=== PATIENT | female | born 1955 | race Caucasian/White ===

== ENCOUNTER 2018-11-22 18:28 | Inpatient (IN) ==
[2018-11-22] MEDS ORDERED: ONDANSETRON INJ 2 MG/ML 2 ML VIAL IV STA (18:39)
[2018-11-22] MEDS ORDERED: SODIUM CHLORIDE 0.9% 1000ML 1,000 ML IV SCH (18:45)
[2018-11-22] MEDS ORDERED: SODIUM CHLORIDE 0.9% 500 ML IV SCH (18:45)
[2018-11-22] MEDS: HYDROmorphone INJ 0.5 MG/0.5 ML SYR IV PRN ×2 (19:15→19:31)
--- NOTE | 2018-11-22 19:17 | XRay Report ---
XR chest 1V portable CLINICAL HISTORY: weakness dyspnea COMPARISON STUDY: 11/01/2018 FINDINGS: Unchanged exam. Infiltrate left base versus effusion. Lungs otherwise appear clear. Chronic atelectatic/fibrotic change right apex. Central catheter in superior vena cava. IMPRESSION: Unchanging infiltrate/effusion left base. No change from the prior study. The above report was generated using voice recognition software. It may contain grammatical, syntax or spelling errors. Electronically signed by: Gopal Crane M.D. 11/22/2018 7:16 PM
[2018-11-22 19:20] LABS: Basophils # (auto) 0.01 K/uL (0-0.2); Basophils % (auto) 0.1 %; Hematocrit (blood only) 27.2 % (37-47); Hemoglobin 8.5 g/dL (12.0-16.0); Immature Granulocytes # (auto) 0.06 K/uL (0.00-0.02); Immature Granulocytes % (auto) 0.3 %; Lymphocytes # (auto) 0.26 K/uL (1.2-3.4); Lymphocytes % (auto) 1.4 %; Mean Corpuscular Hgb Conc 31.3 g/dL (32-36); Mean Corpuscular Volume 81.4 fL (80-100); Monocytes # (auto) 0.03 K/uL (0.11-0.59); Monocytes % (auto) 0.2 %; Neutrophils # (auto) 18.33 K/uL (1.4-6.5); Platelet Count 180 K/uL (130-400); RDW Coefficient of Variation 17.9 % (11.5-14.5); RDW Standard Deviation 53.4 fL (36.4-46.3); Red Blood Count 3.34 M/uL (4.2-5.4); White Blood Count 18.69 K/uL (4.8-10.8)
[2018-11-22 19:38] LABS: Alanine Aminotransferase 25 U/L (12-78); Albumin Level 1.9 gm/dl (3.4-5.0); Aspartate Aminotransferase 43 U/L (15-37); BUN Creatinine Ratio 18.2 (10-20); Blood Urea Nitrogen 28 mg/dl (7-18); Calcium 8.2 mg/dl (8.5-10.1); Carbon Dioxide 29 mmol/L (21-32); Chloride 98 mmol/L (98-107); Creatinine Clr Calc Pharmacy 43.2 ml/min; Est GFR (African American) 40.9; Est GFR (Non-African American) 35.3; Glucose 126 mg/dl (70-99); Magnesium 2.1 mg/dl (1.8-2.4); Sodium 135 mmol/L (136-145)
[2018-11-22 19:49] LABS: Albumin Globulin Ratio 0.5 (0.9-2); Alkaline Phosphatase 179 U/L (45-117); Bilirubin,Total 0.7 mg/dl (0.2-1); Globulin 3.9 gm/dl (2.5-4.0); Total Protein 5.8 gm/dl (6.4-8.2); Troponin I < 0.015 ng/ml (0-0.045)
[2018-11-22] MEDS ORDERED: OPTIRAY 320 125ml IV PRN (19:55)
[2018-11-22 20:02] LABS: T4 Free Thyroxine 1.26 ng/dl (0.8-1.6)
[2018-11-22] MEDS ORDERED: PROMETHAZINE 25 MG/51 ML BAG IV STA (20:19)
--- NOTE | 2018-11-22 20:19 | CT Scan Report ---
CT angio chest PE protocol CT DOSE: 2058.99 mGy.cm HISTORY: Dyspnea SOB, recent PE TECHNIQUE: Multiaxial CT images of the chest were performed following the intravenous administration of contrast to evaluate the pulmonary arteries. Maximal intensity projection images were also obtaine d. A dose lowering technique was utilized adhering to the principles of ALARA. COMPARISON STUDY: 11/01/2018 FINDINGS: Mild atherosclerotic changes thoracic aorta. Bilateral pulmonary emboli considerably improv ed as compared to the prior study. Moderate residual within the distal right main pulmonary artery as well as the proximal right upper a nd right lower lobe pulmonary arterial distributions. No major embolic process involving the left pulmonary arterial structures at this time. Loculated left basilar effusion unchanged. Small left pleural effusion slightly improved. Persistent bibasilar atelectatic change. 2. Esophagus is now fluid-filled suggesting reflux. IMPRESSION: 1. Findings consistent with bilateral pulmonary emboli improved from the prior exam. 2. No new or progressive pulmonary embolic process. 3. Fluid-filled esophagus suggesting probable reflux. 4. Loculated left basilar effusion unchanged. 5. Small bilateral pleural effusions similar. 6. Mild bibasilar atelectatic change slightly improved. 7. . Abdominal ascites. The above report was generated using voice recognition software. It may contain grammatical, syntax or spelling errors. Electronically signed by: Gopal Crane M.D. 11/22/2018 8:18 PM
--- NOTE | 2018-11-22 20:23 | CT Scan Report ---
CT abd pelvis IV con only CT DOSE: HISTORY: Nausea. Vomiting. vomiting, recent pe, ovarian CA, lower pain TECHNIQUE: Multiaxial CT images of the abdomen and pelvis were performed following the use of intrave nous contrast. A dose lowering technique was utilized adhering to the principles of ALARA. COMPARISON STUDY: 11/01/2018 FINDINGS: Mild bibasilar atelectatic and effusion detected change considered stable. Abdominal and pe lvic ascites considered stable. The liver spleen and pancreas enhance uniformly. The esophagus is flu id-filled. Abdominal carcinomatosis unchanged. Nonobstructive bowel pattern. Kidneys are negative for hydronephr osis. Scattered adenopathy unchanged. The bladder is midline. Trace free free fluid within the pelvic cul-de-sac unchanged. IMPRESSION: 1. No major change compared to the prior study of 11/01/2018. 2. Moderate abdominal and pelvic ascites. 3. Nonobstructive bowel pattern. 4. Fluid filled esophagus possibly related to reflux. 5. Mild carcinomatosis unchanged. The above report was generated using voice recognition software. It may contain grammatical, syntax or spelling errors. Electronically signed by: Gopal Crane M.D. 11/22/2018 8:22 PM
--- NOTE | 2018-11-22 21:56 | Emergency Department Note ---
Entered by Carole Nelson acting as a scribe for ED Provider Note CHIEF COMPLAINT: Vomiting HISTORY OF PRESENT ILLNESS: The patient is a 63 year old female who presents to the Emergency Room with complaints of vomitting that started . The patient's son states that the patient started a new chemotherapy medication on for her stage four ovarian cancer. Since then, the patient has been nauseous and vomiting. The patient expresses back pain, shortness of breath, and lack of energy. The patient also states that she has had abdominal pain at a severity of 5. The patient's son reports that the patient has had fluid drained from her stomach and a treatment two weeks ago in this ER for blood clots within her legs. The patient's blood clots were treated using a heparin drip. The patient reports taking morphine this morning and believes that her morning medication has been ingested. The patient has a meta-port in place and is on Novalox. Pt denies LOC, headache, fevers, chills, diaphoresis, visual changes, neck pain, chest pain, melena, hematochezia, numbness, weakness, lymphadenopathy, rash, or other complaints. REVIEW OF SYSTEMS: See HPI for pertinent positives and negatives. A total of ten systems were reviewed and were otherwise negative. PMHx/PSHx: Stage four ovarian cancer SOCIAL HISTORY: Patient lives at home. PHYSICAL EXAM: GENERAL: Awake, alert, ill-appearing, in mild distress and actively vomiting HENT: Normocephalic, atraumatic. Oropharynx unremarkable. EYES: PERRL. Normal conjunctiva. Sclera non-icteric. NECK: Inspection normal. Non-tender. Supple. No nuchal rigidity. FROM. No masses. RESPIRATORY: Clear to auscultation. No wheezes. No rales. Normal respiratory effort. CARDIAC: Borderline tachycardic rate. Normal rhythm. No murmurs. No rubs. Extremities warm and well perfused. Pulses equal. No JVD. GI: Soft, non-distended. Left lower abdominal tenderness. No rebound or guarding. No masses. RECTAL: Deferred. MUSCULOSKELETAL: Atraumatic. Chest examination reveals no tenderness. The back is symmetrical on inspection without obvious abnormality. Left CVA tenderness to palpation. No joint edema. LOWER EXTREMITIES: Calves are equal size bilaterally and non-tender. No edema. No discoloration. NEURO: Normal sensorium. No sensory or motor deficits noted. SKIN: No rash or jaundice noted. EMERGENCY DEPARTMENT COURSE: 1833: Past medical records reviewed. The patient was evaluated in room C3, and a complete history and physical examination were performed. 2032: I reassessed the patient who is still feeling nauseous but is feeling somewhat better. [facility] 2128: I reviewed the patient's case [facility] will evaluate the patient for further management. MEDICAL DECISION MAKING: C3 Prior records/ancillary studies reviewed. The patient was transferred due to concerns about possible intervention requirement on her significant pulmonary emboli. Triage Nursing notes reviewed and agree them. Additional history obtained from the family. The patient's history was concerning for nausea, vomiting, recent pulmonary emboli, shortness of breath and, and abdominal pain. Differential diagnosis: Etiologies such as comp location of chemotherapy, worsening pulmonary emboli, dehydration, electrolyte abnormality, ACS, gastroenteritis, food borne illness, infections, appendicitis, diverticulitis, inflammatory bowel disease, GI bleed, biliary pathology, as well as others were entertained. Physical examination findings: As above. The patient was uncomfortable. She was actively vomiting. She has some mild lower abdominal tenderness. ER treatment provided: IV hydration with NSS. IV Zofran IV Dilaudid On reassessment the patient felt better. Patient was tolerating p.o. intake. Diagnostics interpretation by me: ECG: No acute findings. The labs revealed a mild leukocytosis and anemia on CBC. Chemistry panel shows a mild dehydration otherwise was unremarkable. Imaging studies: CT scan of the chest abdomen pelvis were performed. The pulmonary emboli and chest CT are improved. The CT scan abdomen pelvis does not reveal any acute findings. Carcinomatosis noted. The patient has intractable nausea and vomiting. Likely this is due to her chemotherapy. She is dehydrated. She will need further management in the hospital. Consultation: A consultation was placed with the [facility]. The case was discussed and diagnostics were reviewed. The patient was evaluated in the ER for further treatment. IMPRESSION: Nausea Vomiting Leukocytosis Dehydration Metastatic ovarian cancer PLAN: Admitted The scribe's documentation has been prepared under my direction and personally reviewed by me in its entirety. I confirm that the note above accurately reflects all work, treatment, procedures, and medical decision making performed by me. Impression & Plan Ovarian cancer, Vomiting, Leukocytosis Past Med/Surg History Medical History Ovarian cancer Social History Feels Safe at Home: Yes Smoking Status: Never smoker Results & Data Vital Signs Vital Signs - 24 hr 11/22/18 18:30 11/22/18 19:09 11/22/18 19:34 Temperature 36.8 C Temperature Source Oral Sepsis Recent Fever Within 48 Hours No Sepsis New/Unexplained Change in Mental Status No Sepsis Action Taken by Nursing No Action Required Pulse Rate 99 H 96 H Pulse Rate from SpO2 Sensor 97 H Respiratory Rate 20 21 Blood Pressure 118/80 112/76 Blood Pressure Mean 92 88 Pulse Oximetry 98 98 92 Oxygen Delivery Method Room Air Room Air Room Air 11/22/18 19:47 11/22/18 20:09 11/22/18 20:26 Temperature Temperature Source Sepsis Recent Fever Within 48 Hours Sepsis New/Unexplained Change in Mental Status Sepsis Action Taken by Nursing Pulse Rate 94 H 107 H 103 H Pulse Rate from SpO2 Sensor 95 H 111 H 103 H Respiratory Rate 26 H 21 24 Blood Pressure 114/71 Blood Pressure Mean 85 Pulse Oximetry 93 91 97 Oxygen Delivery Method Room Air Room Air Room Air 11/22/18 20:30 11/22/18 20:31 11/22/18 21:00 Temperature Temperature Source Sepsis Recent Fever Within 48 Hours Sepsis New/Unexplained Change in Mental Status Sepsis Action Taken by Nursing Pulse Rate 99 H 99 H 104 H Pulse Rate from SpO2 Sensor 99 H 100 H 102 H Respiratory Rate 21 22 27 H Blood Pressure 133/78 134/83 Blood Pressure Mean 96 100 Pulse Oximetry 94 95 91 Oxygen Delivery Method Room Air Room Air Room Air 11/22/18 21:01 11/22/18 21:30 11/22/18 21:31 Temperature Temperature Source Sepsis Recent Fever Within 48 Hours Sepsis New/Unexplained Change in Mental Status Sepsis Action Taken by Nursing Pulse Rate 103 H 99 H 101 H Pulse Rate from SpO2 Sensor 104 H 100 H 101 H Respiratory Rate 26 H 22 24 Blood Pressure 121/78 Blood Pressure Mean 92 Pulse Oximetry 95 95 94 Oxygen Delivery Method Room Air Room Air Room Air Home Medications Current Medication List: was personally reviewed by me Laboratory Data Attestation: I reviewed the patient's lab results. Result diagrams: 11/22/18 19:09 11/22/18 19:09 Lab Results 11/22/18 11/22/18 11/22/18 Range/Units 19:09 19:09 19:14 WBC 18.69 H (4.8-10.8) K/uL RBC 3.34 L (4.2-5.4) M/uL Hgb 8.5 L (12.0-16.0) g/dL Hct 27.2 L (37-47) % MCV 81.4 (80-100) fL MCH 25.4 (25-34) pg MCHC 31.3 L (32-36) g/dL RDW Std Deviation 53.4 H (36.4-46.3) fL RDW Coeff of Noel 17.9 H (11.5-14.5) % Plt Count 180 (130-400) K/uL MPV 9.0 (7.4-10.4) fL Immature Gran % (Auto) 0.3 % Neut % (Auto) 98.0 % Lymph % (Auto) 1.4 % Levy % (Auto) 0.2 % Eos % (Auto) 0.0 % Baso % (Auto) 0.1 % Immature Gran # (Auto) 0.06 H (0.00-0.02) K/uL Neut # (Auto) 18.33 H (1.4-6.5) K/uL Lymph # (Auto) 0.26 L (1.2-3.4) K/uL Levy # (Auto) 0.03 L (0.11-0.59) K/uL Eos # (Auto) 0.00 (0-0.5) K/uL Baso # (Auto) 0.01 (0-0.2) K/uL Sodium 135 L (136-145) mmol/L Potassium 4.0 (3.5-5.1) mmol/L Chloride 98 (98-107) mmol/L Carbon Dioxide 29 (21-32) mmol/L Anion Gap 8.0 (3-11) BUN 28 H (7-18) mg/dl Creatinine 1.53 H (0.6-1.2) mg/dl Est Cr Clr Drug Dosing 43.2 ml/min Est GFR ( Amer) 40.9 Est GFR (Non-Af Amer) 35.3 BUN/Creatinine Ratio 18.2 (10-20) Glucose 126 H (70-99) mg/dl POC Lactic Acid Joshua 1.65 (0.90-1.70) mmol/L Calcium 8.2 L (8.5-10.1) mg/dl Magnesium 2.1 (1.8-2.4) mg/dl Total Bilirubin 0.7 (0.2-1) mg/dl AST 43 H (15-37) U/L ALT 25 (12-78) U/L Alkaline Phosphatase 179 H (45-117) U/L Troponin I < 0.015 (0-0.045) ng/ml Total Protein 5.8 L (6.4-8.2) gm/dl Albumin 1.9 L (3.4-5.0) gm/dl Globulin 3.9 (2.5-4.0) gm/dl Albumin/Globulin Ratio 0.5 L (0.9-2) TSH 6.740 H (0.300-4.500) uIu/ml Free T4 1.26 (0.8-1.6) ng/dl Administered Medications Hydromorphone HCl (Dilaudid) 0.5 mg IV Q15M PRN PRN Reason: Pain Stop: 12/06/18 18:38 Last Admin: 11/22/18 19:31 Dose: 0.5 mg Documented by: [id number] Admin: 11/22/18 19:15 Dose: 0.5 mg Documented by: [id number] Sodium Chloride (Nss 1000ml) 1,000 mls @ 125 mls/hr IV .Q8H [facility] Stop: 11/23/18 02:44 Last Admin: 11/22/18 19:35 Dose: 125 mls/hr Documented by: [id number] Ioversol (Optiray 320 125ml) 119 ml IV ONCE PRN PRN Reason: Interaction Checking Stop: 11/26/18 19:54 Last Admin: 11/22/18 19:56 Dose: 119 ml Documented by: [id number] Discontinued Medications Sodium Chloride (Nss) 500 mls @ 999 mls/hr IV .Q31M [facility] Stop: 11/22/18 19:15 Last Infusion: 11/22/18 19:35 Dose: 0 mls/hr Documented by: [id number] Admin: 11/22/18 19:14 Dose: 999 mls/hr Documented by: [id number] Promethazine HCl (Phenergan) 25 mg in 51 mls @ 204 mls/hr IV NOW STA Stop: 11/22/18 20:33 Last Infusion: 11/22/18 20:43 Dose: 0 mls/hr Documented by: [id number] Admin: 11/22/18 20:28 Dose: 204 mls/hr Documented by: [id number] Ondansetron HCl (Zofran) 4 mg IV NOW STA Stop: 11/22/18 18:40 Last Admin: 11/22/18 19:14 Dose: 4 mg Documented by: [id number] Imaging Data Radiologist's Impression: Radiology results as stated below per my review and the radiologist's interpretation: XR chest 1V portable CLINICAL HISTORY: weakness dyspnea COMPARISON STUDY: 11/01/2018 FINDINGS: Unchanged exam. Infiltrate left base versus effusion. Lungs otherwise appear clear. Chronic atelectatic/fibrotic change right apex. Central catheter in superior vena cava. IMPRESSION: Unchanging infiltrate/effusion left base. No change from the prior study. The above report was generated using voice recognition software. It may contain grammatical, syntax or spelling errors. Electronically signed by: Gopal Crane M.D. 11/22/2018 7:[address] abd pelvis IV con only CT DOSE: HISTORY: Nausea. Vomiting. vomiting, recent pe, ovarian CA, lower pain TECHNIQUE: Multiaxial CT images of the abdomen and pelvis were performed following the use of intravenous contrast. A dose lowering technique was utilized adhering to the principles of ALARA. COMPARISON STUDY: 11/01/2018 FINDINGS: Mild bibasilar atelectatic and effusion detected change considered stable. Abdominal and pelvic ascites considered stable. The liver spleen and pancreas enhance uniformly. The esophagus is fluid-filled. Abdominal carcinomatosis unchanged. Nonobstructive bowel pattern. Kidneys are negative for hydronephrosis. Scattered adenopathy unchanged. The bladder is midline. Trace free free fluid within the pelvic cul-de-sac unchanged. IMPRESSION: 1. No major change compared to the prior study of 11/01/2018. 2. Moderate abdominal and pelvic ascites. 3. Nonobstructive bowel pattern. 4. Fluid filled esophagus possibly related to reflux. 5. Mild carcinomatosis unchanged. The above report was generated using voice recognition software. It may contain grammatical, syntax or spelling errors. Electronically signed by: Gopal Crane M.D. 11/22/2018 8:[address] angio chest PE protocol CT DOSE: 2058.99 mGy.cm HISTORY: Dyspnea SOB, recent PE TECHNIQUE: Multiaxial CT images of the chest were performed following the intravenous administration of contrast to evaluate the pulmonary arteries. Maximal intensity projection images were also obtained. A dose lowering technique was utilized adhering to the principles of ALARA. COMPARISON STUDY: 11/01/2018 FINDINGS: Mild atherosclerotic changes thoracic aorta. Bilateral pulmonary emboli considerably improved as compared to the prior study. Moderate residual within the distal right main pulmonary artery as well as the proximal right upper and right lower lobe pulmonary arterial distributions. No major embolic process involving the left pulmonary arterial structures at this time. Loculated left basilar effusion unchanged. Small left pleural effusion slightly improved. Persistent bibasilar atelectatic change. 2. Esophagus is now fluid-filled suggesting reflux. IMPRESSION: 1. Findings consistent with bilateral pulmonary emboli improved from the prior exam. 2. No new or progressive pulmonary embolic process. 3. Fluid-filled esophagus suggesting probable reflux. 4. Loculated left basilar effusion unchanged. 5. Small bilateral pleural effusions similar. 6. Mild bibasilar atelectatic change slightly improved. 7. . Abdominal ascites. The above report was generated using voice recognition software. It may contain grammatical, syntax or spelling errors. Electronically signed by: Gopal Crane M.D. 11/22/2018 8:18 PM ECG Data Attestation: I personally reviewed and interpreted this ECG as follows: Indication: vomiting Rate (beats per minute): 96 Rhythm: normal sinus Findings: + other (Poor R wave progression) and + nonspecific-ST abn; no PAC, no PVC, no ST depression and no ST elevation Blood Pressure Blood Pressure Findings: Normal blood pressure Discharge Plan Visit Data Chief Complaint: Vomiting Stated Complaint: VOMITING, DEHYDRATION, CHEMO SIDE EFFECTS ED Provider: Dario Mckeon Discharge Problem: Ovarian cancer, Vomiting, Leukocytosis Forms Stand Alone Forms: My [facility] Prescriptions Prescriptions: No Action polyethylene glycol 3350 [Miralax] 17 gram Powder In Packet 17 g PO QAM RF: 0 prochlorperazine maleate 10 mg Tablet 10 mg PO Q4H PRN (Reason: Nausea) RF: 0 simvastatin 40 mg Tablet 20 mg PO PM RF: 0 ondansetron 8 mg Tablet,Disintegrating 8 mg PO Q4H PRN (Reason: Nausea) RF: 0 lorazepam 0.5 mg Tablet 0.5 mg PO UD PRN (Reason: Anxiety) RF: 0 amlodipine 10 mg Tablet 10 mg PO QAM RF: 0 ranitidine HCl 150 mg Tablet 150 mg PO PM RF: 0 gabapentin 300 mg Capsule 300 mg PO QPM RF: 0 folic acid 1 mg Tablet 1 mg PO QAM RF: 0 morphine 15 mg Tablet 15 mg PO BID RF: 0 oxycodone 5 mg Tablet 5 mg PO Q4H PRN (Reason: Pain) RF: 0 cyclobenzaprine 5 mg Tablet 5 mg PO UD PRN (Reason: Muscle Spasm) RF: 0 bupropion HCl 150 mg Tablet Extended Release 24 Hr 150 mg PO QAM RF: 0 sennosides-docusate sodium [Senna-S] 8.6-50 mg Tablet 2 tab PO HS PRN (Reason: Constipation) RF: 0 enoxaparin [Lovenox] 120 mg/0.8 mL Syringe 120 mg SUBCUT Q12H RF: 0 Discharge Problem: Ovarian cancer Qualifiers: Laterality: unspecified laterality Qualified Code(s): C56.9 - Malignant neoplasm of unspecified ovary Vomiting Qualifiers: Vomiting type: unspecified Vomiting Intractability: intractable Nausea presence: with nausea Qualified Code(s): R11.2 - Nausea with vomiting, unspecified Leukocytosis Qualifiers: Leukocytosis type: unspecified Qualified Code(s): D72.829 - Elevated white blood cell count, unspecified The scribe's documentation has been prepared under my direction and personally reviewed by me in its entirety. I confirm that the note above accurately reflects all work, treatment, procedures, and medical decision making performed by me.
[2018-11-22] MEDS ORDERED: CYCLOBENZAPRINE HCL 5 MG TAB PO PRN (23:13)
[2018-11-22] MEDS ORDERED: LORazepam 0.5 MG TAB PO PRN (23:13)
[2018-11-22] MEDS ORDERED: NITROGLYCERIN SL 0.4 MG/TAB TAB SL PRN (23:13)
[2018-11-22] MEDS ORDERED: ACETAMINOPHEN 325 MG TAB PO PRN (23:13)
[2018-11-22] MEDS: ONDANSETRON INJ 2 MG/ML 2 ML VIAL IV PRN (23:56)
[2018-11-22] MEDS: SODIUM CHLORIDE 0.9% 1000ML 1,000 ML IV SCH (23:56)
--- NOTE | 2018-11-23 01:16 | History and Physical Report ---
DATE OF ADMISSION: 11/22/2018 CHIEF COMPLAINT: Persistent nausea and vomiting. HISTORY OF PRESENT ILLNESS: This 63-year-old female with past medical history significant for ovarian cancer is currently on chemo, history of hypertension, chronic pain, history of recent diagnosis of bilateral pulmonary embolism. At that time, she was hypotensive and she was transferred to [facility] [place] for possible IR, but as per patient no intervention was done and she was placed on Lovenox shots. She had last chemo last at [place] and she is currently moving her care to [place]. She has established last week with Gwen PCP in [place] and she is supposed to follow for next chemo with [facility] oncology next , but presents to the ER today because of persistent nausea and vomiting since last since her chemo. She is not able to eat anything, not able to keep anything down. She felt she was dehydrated and got worried and came to the hospital. She has some cough with whitish phlegm. Says she is vomiting whatever she eats. She is eating lot of popsicles as per the family. She lives with her son and [id number]. She ambulates with the help of a walker. Not eating, poor appetite since several weeks. About 4 liters of ascitic fluid was taken out last and about 3 liters taken out a couple of weeks prior to that. She says her shortness of breath is same as usual. She has some abdominal discomfort, but it is improving now. Still feels nauseous. Denies any chest pain. No headache, no blurred visions, no earache, no runny nose, has some sore throat from persistent vomiting. No fevers. Sleeps okay. Had some diarrhea last Friday, but since then she did not move her bowels. No blood in the stools, no black stools. Normal bladder movements. No swelling of the legs. No rash. Currently resting comfortably and hemodynamically stable. ALLERGIES: No known drug allergies. PAST MEDICAL HISTORY: As mentioned above. PAST SURGICAL HISTORY: Chest tube insertion, cystoscopy, D and C, radical hysterectomy with lymphadenectomy, removal of lingual tonsil, cataract surgery, port for chemo. MEDICATIONS: The patient is on amlodipine 10 mg p.o. daily a.m., bupropion 150 mg p.o. a.m., cyclobenzaprine 5 mg p.o. p.r.n., Lovenox 120 mg subcutaneous q. 12 hours., folic acid 1 mg p.o. daily, gabapentin 300 mg p.o. q.p.m., lorazepam 0.5 mg p.r.n., morphine 60 mg p.o. b.i.d., Zofran 8 mg p.o. q. 4 hours p.r.n., oxycodone 5 mg p.o. q. 4 hours p.r.n., MiraLax 17 grams p.o. daily a.m., prochlorperazine 10 mg p.o. q. 4 hours p.r.n., ranitidine 150 mg p.o. q.p.m., Senokot-S 2 tablets p.o. at bedtime p.r.n., simvastatin 20 mg p.o. q.p.m. FAMILY HISTORY: No family history on file. SOCIAL HISTORY: Single, lives with her son. No smoking history. No alcohol currently. REVIEW OF SYMPTOMS: As per HPI. Rest of the review of systems negative. PHYSICAL EXAMINATION: GENERAL: The patient is of moderate build, not in acute distress. VITAL SIGNS: Temperature 36.8, pulse 101, respiratory rate 24, blood pressure 121/78, oxygen 94% room air. HEENT: No pallor, no icterus. Pupils equal, round, reactive to light. NECK: No JVD, no neck masses, no carotid bruits. CARDIOVASCULAR: S1, S2 heard, regular rate and rhythm, no murmur, no gallop. RESPIRATORY SYSTEM: Normal AP diameter. No accessory muscle use. No wheezing, no crackles. ABDOMEN: Soft, bowel sounds present. Mild abdominal discomfort. No guarding, no rigidity, no distention. CENTRAL NERVOUS SYSTEM: Cranial nerves II-XII grossly nonfocal. EXTREMITIES: Mild edema. No erythema seen. LABORATORY DATA: WBC 18.6, hemoglobin 8.5, hematocrit 27.2, platelets 180. Sodium 135, potassium 4, chloride 98, bicarbonate 29, BUN 28, creatinine 1.53, serum glucose 126, point of care lactic acid is 1.65, calcium 8.2, magnesium 2.1, total bilirubin 0.7, AST 43, ALT 25, alkaline phosphatase 179. Troponin I less than 0.015. TSH 6.7, free T4 of 1.26. IMAGING DATA: Chest x-ray, unchanging infiltrate, left breast. No change from prior study. CTA of the chest, finding consistent with bilateral pulmonary emboli, improved from the prior exam. No new or progressive pulmonary embolic process, fluid-filled esophagus suggesting probable reflux, lobulated left basilar effusion unchanged, small bilateral pleural effusion seen. Mild bibasilar atelectatic change, slightly improved. Abdominal ascites. CT of abdomen and pelvis, no major change compared to prior study of 11/01/2018. Moderate abdominal and pelvic ascites, nonobstructive bowel pattern, fluid-filled esophagus, positive retrograde reflux, mild carcinomatosis unchanged. EKG: Normal sinus rhythm with a rate of 96, no acute ST changes seen. ASSESSMENT AND PLAN: This is a 63-year-old female who presents with persistent nausea and vomiting since chemo last . 1. Persistent nausea and vomiting since chemo for ovarian cancer last . Not able to keep anything down. Sodium is 135. We will admit to the hospital, place on IV fluids, IV antiemetics. Supposed to see hem/onc next week in the [place]. We will consult hem/onc for any further recommendation. If the vomiting does not improve, we will consult GI. Monitor on the med/surg tele. 2. History of ovarian cancer, on chemo. Usually follows with oncology at [facility], but changing care to [facility] oncology group. Will consult [facility] oncology for further recommendation. 3. Bilateral pulmonary embolism, presented with hypotension at the end of October 2018and was transfered to [facility] intensive care unit for possible IR for thrombectomy, but as per patient no thrombectomy was done and she was placed on Lovenox shots which she will continue and follow with hematology/oncology. 5. Chronic kidney disease stage III with creatinine of 1.5, we do not know the baseline creatinine, but last ER visit her creatinine was 1.8. On fluids. Will follow the labs. 6. Clinical hypothyroidism. Patient's TSH is 6.7, but free T4 is normal. Needs followup. 7. Chronic pain. Continue her home pain medications. Hold oxycodone p.o. Placed on IV Dilaudid p.r.n. 8. Hypertension. Continue on amlodipine for the blood pressure. 9. Depression. Continue bupropion. 10. Deep venous thrombosis prophylaxis, sequential compression devices for now. 11. Disposition: Admit to med/surg tele. Level 1 full code as per discussion with the patient. PT and OT prior to discharge. Social Service to help with discharge planning. [facility]
[2018-11-23] MEDS: ENOXAPARIN 100 MG/1ML SYR SQ SCH ×2 (02:25→12:15)
[2018-11-23] MEDS: PROMETHAZINE HCL 12.5 MG in SODIUM CHLORIDE 0.9% 50 ML IV PRN ×3 (02:59→21:27)
[2018-11-23 06:07] LABS: Hematocrit (blood only) 25.7 % (37-47); Hemoglobin 7.9 g/dL (12.0-16.0); Mean Corpuscular Hgb Conc 30.7 g/dL (32-36); Mean Corpuscular Volume 83.7 fL (80-100); Mean Platelet Volume 9.2 fL (7.4-10.4); Platelet Count 179 K/uL (130-400); Red Blood Count 3.07 M/uL (4.2-5.4); White Blood Count 21.48 K/uL (4.8-10.8)
[2018-11-23 06:21] LABS: Appearance Urine Clear (Clear); Bilirubin Urine Negative (Negative); Blood Urine Negative (Negative); Color Urine Dark Yellow; Glucose Urine UA Negative (Negative); Ketones Urine Negative (Negative); Leukocyte Esterase Urine Negative (Negative); Nitrite Urine Negative (Negative); Protein Urine 1+ (Negative); Specific Gravity Urine > 1.045 (1.000-1.030); Urobilinogen Urine Negative (Negative)
[2018-11-23] MEDS: SODIUM CHLORIDE 0.9% 1000ML 1,000 ML IV SCH ×3 (06:33→20:58)
[2018-11-23] MEDS: ONDANSETRON INJ 2 MG/ML 2 ML VIAL IV PRN ×2 (06:33→19:54)
[2018-11-23 06:35] LABS: BUN Creatinine Ratio 19.4 (10-20); Calcium 7.9 mg/dl (8.5-10.1); Creatinine Clr Calc Pharmacy 44.5 ml/min; Est GFR (African American) 43.7; Est GFR (Non-African American) 37.7; Magnesium 2.1 mg/dl (1.8-2.4); Potassium 4.1 mmol/L (3.5-5.1)
[2018-11-23 06:37] LABS: Epithelial Cell Urine >30 /lpf (0-5); RBC Urine 0-4 /hpf (0-4)
[2018-11-23 06:39] LABS: Uric Acid Crystals Urine Present (None Prsent)
[2018-11-23 06:40] LABS: Bacteria Urine 1+ (Negative)
[2018-11-23 06:56] LABS: Anisocytosis Present; Immature Granulocytes # (auto) 0.08 K/uL (0.00-0.02); Immature Granulocytes % (auto) 0.4 %; Lymphocytes # (auto) 0.36 K/uL (1.2-3.4); Lymphocytes % (auto) 1.7 %; Monocytes # (auto) 0.03 K/uL (0.11-0.59); Monocytes % (auto) 0.1 %; Neutrophils # (auto) 21.01 K/uL (1.4-6.5); Neutrophils % (auto) 97.8 %
[2018-11-23] MEDS: FOLIC ACID 1 MG TAB PO SCH (09:25)
[2018-11-23] MEDS: MoRPHine SULFATE IR 15 MG TAB (IMMEDIATE RELEASE) PO SCH ×2 (09:25→20:53)
[2018-11-23] MEDS: BuPROPion XL 150 MG TABCR PO SCH (09:26)
[2018-11-23] MEDS: AMLODIPINE BESYLATE 5 MG TAB PO SCH (09:26)
[2018-11-23] MEDS ORDERED: METOCLOPRAMIDE HCL INJ 5 MG/ML 2 ML VIAL IV STA (09:51)
--- NOTE | 2018-11-23 11:17 | Hospitalist Progress Note ---
Date of Service November 23, 2018 Assessment & Plan (1) Nausea & vomiting: Present on admission with persistent nausea and vomiting since chemo for ovarian cancer last week Related to chemo therapy CT abd/pelvis showed no major change compared to the prior study of 11/01/2018. Moderate abdominal and pelvic ascites. Nonobstructive bowel pattern. Continue IV antiemetic with Zofran and phenegan Will try Reglan since there is no improvement Continue IVF Keep NPO for now Consider GI consult if symptoms worsening (2) Ovarian cancer: Follow with Oncology in [facility], Plan to switch care to [facility] oncology group. Will consult [facility] oncology consult pending (3) Leukocytosis: Elevated WBC possible reactive CTA chest showed loculated left basilar effusion unchanged Afebrile Blood cx and urine cx pending Will hold on abx for now (4) Bilateral pulmonary embolism: Recent PE in October 21 CTA chest showed findings consistent with bilateral pulmonary emboli improved from the prior exam. Continue therapeutic lovenox BID (5) Acute renal failure superimposed on stage 3 chronic kidney disease: Creatinine on admission 1.5 (unknown baseline ) Creatinine 1.4 today Continue IVF (6) Chronic pain: Continue pain control (7) Depression: Continue Bupropion (8) Chronic anemia: Hbg 7.9 today Monitor CBC DVT px on Lovenox BID CODE STATUS FULL CODE Subjective Pt was seen and examined Lying in bed with no distress Pt said that she continues to have dry hives/nausea She said that she has not had any vomiting today She said that the zofran and phenergan do not seem to help She said that she continue to have mild abdominal pain that is chronic Denies any chest pain, palpitation, dizziness and SOB Physical Exam Physical Exam: General- No acute distress Head- atraumatic Eyes- PERRL, EOMI, ENT- oropharynx clear Neck- supple, no JVD Lungs- clear to auscultation Heart- regular rhythm; no murmur Abdomen- normal bowel sounds, +mild abdominal tenderness Extremities- no calf tenderness Neuro- alert, oriented x 3; PERRL, EOMI; no facial palsy; no dysarthria Skin- warm & dry Results & Data Vital Signs (Past 12 Hours) Vital Signs Temp Pulse Pulse Resp BP Pulse Ox 11/23/18 07:29 36.9 C 101 H 16 125/85 95 11/23/18 04:00 36.7 C 103 H 20 140/76 98 11/23/18 02:28 109 H 11/22/18 23:15 36.7 C 116 H 16 111/76 97 (1) Ovarian cancer Laterality: unspecified laterality Qualified Code(s): C56.9 - Malignant neoplasm of unspecified ovary (2) Leukocytosis Leukocytosis type: unspecified Qualified Code(s): D72.829 - Elevated white blood cell count, unspecified
--- NOTE | 2018-11-23 16:01 | Palliative Care Progress Note ---
Date of Service November 23, 2018 Subjective Met with patient and her [id number] today. The family is meeting with oncologist this afternoon. Palliative care will follow up tomorrow. Results & Data Vital Signs (Past 12 Hours) Vital Signs Temp Pulse Pulse Resp BP Pulse Ox 11/23/18 15:41 36.3 C L 97 H 16 120/80 97 11/23/18 15:31 94 H 11/23/18 11:47 36.9 C 97 H 16 122/89 96 11/23/18 07:29 36.9 C 101 H 16 125/85 95 11/23/18 04:00 36.7 C 103 H 20 140/76 98 PG Care Time/CCT Total # of Minutes Spent Total Time Spent with Patient: Total time spent is greater than 50% in coordination of care (as documented) at patient's floor/unit and/or counseling patient:
--- NOTE | 2018-11-23 17:14 | Oncology Consultation ---
Date of Consultation November 23, 2018 Assessment & Plan (1) Nausea & vomiting: Ms. Colindres came in unable to eat from nausea. Some of this may be related to chemotherapy, but gemcitabine is one of the low emetogenicity chemotherapy agents and so we would not generally expect intractable nausea and vomiting from it alone. It sounds like she was not eating well even prior to treatment. While she does not appear to have a mechanical bowel obstruction, I suspect she has a component of GI dysmotility from peritoneal carcinomatosis. This is a very common issue in patients with ovarian and primary peritoneal cancers and is often an end-stage event. Further raising my concern about her long-term survival is her very low serum albumin. We should try adding some Reglan to her anti-emesis regimen, as that can help to improve bowel motility. We can also continue with her other antiemetics and supportive measures to see if she improves. However, I also think it would be advisable for her to begin considering her goals as they relate to end-of-life care. Palliative care have been consulted and I agree with that plan. It is not entirely clear that hospice is her only option at this point, but it would certainly be a reasonable one given her recent history and very advanced cancer. We can discuss this more as the remainder of her hospital stay progresses. Present on Admission?: Yes History of Present Illness Reason for Consultation: Nausea/vomiting Primary peritoneal carcinoma Attending Physician: Prosper Wall MD History of Present Illness Ms. Colindres is a 63 year old woman with a history of primary peritoneal carcinoma. Her treatment was primarily in [place] and she recently moved to the area to be closer to her children. She has received several lines of chemotherapy. However, the durations of her responses have been relatively short and she did not tolerate her most recent prior therapy, topotecan. She was recommended to try gemcitabine and received her first infusion last . Prior to that treatment, she was apparently weak and tired but eating at least small amounts of food. However, since chemo, she has not been able to keep anything down. Her last bowel movement was late last week as well. She had a CT in the ER that did not reveal a bowel obstruction. She has been managed since with bowel rest and IV antiemetics. She has not vomited yet today, but is only getting sips and chips thus far. She denied any pain today. Allergies Allergy/AdvReac Type Severity Reaction Status Date / Time No Known Allergies Allergy Unverified 11/22/18 19:10 Home Medications Home Medications Medication Instructions Recorded Confirmed Type amlodipine 10 mg PO QAM 11/01/18 11/22/18 History bupropion HCl 150 mg PO QAM 11/01/18 11/22/18 History cyclobenzaprine 5 mg PO UD PRN 11/01/18 11/22/18 History folic acid 1 mg PO QAM 11/01/18 11/22/18 History gabapentin 300 mg PO QPM 11/01/18 11/22/18 History lorazepam 0.5 mg PO UD PRN 11/01/18 11/22/18 History morphine 15 mg PO BID 11/01/18 11/22/18 History ondansetron 8 mg PO Q4H PRN 11/01/18 11/22/18 History oxycodone 5 mg PO Q4H PRN 11/01/18 11/22/18 History polyethylene glycol 3350 [Miralax] 17 g PO QAM 11/01/18 11/22/18 History prochlorperazine maleate 10 mg PO Q4H PRN 11/01/18 11/22/18 History ranitidine HCl 150 mg PO PM 11/01/18 11/22/18 History simvastatin 20 mg PO PM 11/01/18 11/22/18 History enoxaparin [Lovenox] 120 mg SUBCUT Q12H 11/22/18 11/22/18 History sennosides-docusate sodium 2 tab PO HS PRN 11/22/18 11/22/18 History [Senna-S] Patient History Medical History Ovarian cancer Social History Preferred Language: Icelandic Communication Ability: Effective Blind Cleaner Required: Yes Beliefs That Will Affect Care: None Current Living Situation: Family Current Living Situation Comment: House Other Information That Helps Us Care for You: No Feels Safe at Home: Yes Safety Concerns: Feels Safe At This Time Smoking Status: Never smoker Hx Alcohol Use: No Hx Substance Use: No Review of Systems Constitutional: + fatigue, + weakness and + anorexia; no fever Respiratory: no cough and no dyspnea Cardiovascular: no chest pain and no edema Gastrointestinal: + nausea and + vomiting; no diarrhea/loose stools Musculoskeletal: no back pain No bone pain Neurologic: no headache(s) Physical Exam Constitutional: + ill appearing and comfortable; no acute distress Eyes: + anicteric sclerae and EOM intact bilaterally ENMT: Mouth: + dry oral mucous membranes; no oral mucosal abnormality Respiratory: normal respiratory effort, lungs clear to auscultation Cardiovascular: RRR, no murmur, no edema Gastrointestinal (Abdomen): Inspection/Auscultation: + hypoactive bowel sounds; abdomen not distended Percussion/Palpation: abdomen soft; abdomen nontender Neurologic: awake (somnolent but easily arousable) Lymphatic: no cervical or axillary lymphadenopathy Results & Data Vital Signs (Past 12 Hours) Vital Signs Temp Pulse Pulse Resp BP Pulse Ox 11/23/18 15:41 36.3 C L 97 H 16 120/80 97 11/23/18 15:31 94 H 11/23/18 11:47 36.9 C 97 H 16 122/89 96 11/23/18 07:29 36.9 C 101 H 16 125/85 95 Laboratory Results Laboratory Tests 11/22/18 11/23/18 11/23/18 19:09 05:43 05:43 WBC 21.48 H Hgb 7.9 L Plt Count 179 BUN 28 H 28 H Creatinine 1.53 H 1.45 H Albumin 1.[address] A/P from 11/22/18: IMPRESSION: 1. No major change compared to the prior study of 11/01/2018. 2. Moderate abdominal and pelvic ascites. 3. Nonobstructive bowel pattern. 4. Fluid filled esophagus possibly related to reflux. 5. Mild carcinomatosis unchanged. (1) Nausea & vomiting Vomiting type: unspecified Vomiting Intractability: intractable Qualified Code(s): R11.2 - Nausea with vomiting, unspecified
[2018-11-23] MEDS: METOCLOPRAMIDE HCL INJ 5 MG/ML 2 ML VIAL IV PRN (17:39)
[2018-11-23] MEDS: SIMVASTATIN 40 MG TAB PO SCH (20:53)
[2018-11-23] MEDS: GABAPENTIN 300 MG CAP PO SCH (20:54)
[2018-11-23] MEDS ORDERED: LOPERAMIDE HCL 2 MG CAP PO STA (21:15)
[2018-11-24] MEDS: SODIUM CHLORIDE 0.9% 1000ML 1,000 ML IV SCH ×2 (04:58→16:21)
[2018-11-24] MEDS: ENOXAPARIN 100 MG/1ML SYR SQ SCH ×2 (05:04→13:29)
[2018-11-24 06:22] LABS: Hematocrit (blood only) 22.4 % (37-47); Hemoglobin 7.1 g/dL (12.0-16.0); Mean Corpuscular Hgb Conc 31.7 g/dL (32-36); Mean Corpuscular Volume 83.9 fL (80-100); Mean Platelet Volume 8.7 fL (7.4-10.4); Platelet Count 119 K/uL (130-400); RDW Coefficient of Variation 18.3 % (11.5-14.5); RDW Standard Deviation 56.7 fL (36.4-46.3); Red Blood Count 2.67 M/uL (4.2-5.4); White Blood Count 7.24 K/uL (4.8-10.8)
[2018-11-24 06:45] LABS: Calcium 7.3 mg/dl (8.5-10.1); Creatinine Clr Calc Pharmacy 52.9 ml/min; Est GFR (African American) 53.8; Est GFR (Non-African American) 46.5; Potassium 3.7 mmol/L (3.5-5.1)
[2018-11-24] MEDS: AMLODIPINE BESYLATE 5 MG TAB PO SCH (09:08)
[2018-11-24] MEDS: MoRPHine SULFATE IR 15 MG TAB (IMMEDIATE RELEASE) PO SCH ×2 (09:08→21:07)
[2018-11-24] MEDS: BuPROPion XL 150 MG TABCR PO SCH (09:08)
[2018-11-24] MEDS: FOLIC ACID 1 MG TAB PO SCH (09:09)
[2018-11-24] MEDS: ONDANSETRON INJ 2 MG/ML 2 ML VIAL IV PRN (09:20)
[2018-11-24] MEDS ORDERED: SODIUM CHLORIDE 0.9% 250 ML IV PRN (09:35)
--- NOTE | 2018-11-24 11:23 | Palliative Care Consultation ---
Date of Consultation November 24, 2018 Assessment & Plan (1) Goals of care, counseling/discussion: -63 year old female patient with ovarian cancer with peritoneal carcinomatosis, presented to the hospital with intractable nausea and vomiting. Patient was living in [place] since 2016. She was diagnosed with ovarian cancer and has had several rounds of chemotherapy in [place]. She was not having great response to therapy, so she decided to move back to [place] with her children so she could spend time with them while she continued to receive chemotherapy. She first saw an oncologist in [place], but recently transferred her care to the [facility] as she moved in with her older son, Chon, who lives in the area. Patient has been experiencing increased nausea and vomiting, "couldn't hold anything down." Patient then received one dose of gemcitabine and continued to have N/V, so she came to the ED. CT abdomen showed metastatic disease, but no obstruction. Heme/onc was consulted who stated gemcitabine is not a particularly emetogenic drug, and given the fact that the N /V was present prior to that medication being given, it likely is not treatment- related. She was started on Reglan PRN. Heme/onc also noted that while hospice is not the only option for patient at this point, it could be a reasonable one depending on patient's goals of care. Palliative care is consulted. -Met at length with patient this morning in room 283-2. She is awake, alert and oriented x4. She states that she had a "very good talk" with Dr. Rodgers, her two sons Param and Chon, and daughter in law, Rufina, last evening. She is aware that her disease is not curable, but she was hoping that she might be able to tolerate some treatment in order to extend her life and spend time with family. -Patient states that she does not want to extend her life if she continues to feel so poorly with intractable N/V. However, today she is feeling the best she's felt in weeks. She tolerated a clear liquid diet for lunch. Patient doesn't feel that she is ready to make a final decision today on whether she will pursue hospice care,but she is open to discussing all the options. She also is requesting assistance with talking to her children about goals of care and end of life issues. -Patient is requesting to have living will/POA paperwork done-- patient rep is consulted. -Likely will having family meeting later in the week at the family's convenience to further discuss options. -I was able to speak with patient's [id number] Rufina, as well. She states that she and her Chon are willing to have patient live with them as long as she is able. They would be okay with her going on hospice and even dying in their home if that is the patient's wish. -Palliative care will continue to follow and provide support with medical decision making and end of life issues. (2) Nausea & vomiting: Vomiting Intractability: intractable Vomiting type: unspecified Qualified Code(s): R11.2 - Nausea with vomiting, unspecified (3) Ovarian cancer: Laterality: unspecified laterality Qualified Code(s): C56.9 - Malignant neoplasm of unspecified ovary Supervising Physician Co-Signing Physician Notes Chart reviewed, patient seen and examined-patient's [id number] at bedside. Collaborated with HNOG Coyle who was also present toward the end of the visit. PE: Patient awake alert, no acute distress HEENT: EOMI, hearing within normal limits Respirations: Unlabored CV: Regular rate Abdomen: Distended Neuro: Alert and oriented x4 Agree with above note, assessment and plan as per HONG Coyle -will continue to follow and assist with medical decision making. Prolonged discussion with patient and daughter regarding treatment options including continued chemotherapy-also discussed patient's goals and quality of life. History of Present Illness Reason for Consultation: Goals of care Attending Physician: Prosper Wall MD History of Present Illness This 63 year old female patient with ovarian cancer with peritoneal carcinomatosis, presented to the hospital with intractable nausea and vomiting. Patient was living in [place] since 2016. She was diagnosed with ovarian cancer and has had several rounds of chemotherapy in [place]. She was not having great response to therapy, so she decided to move back to [place] with her children so she could spend time with them while she continued to receive bety motherapy. She first saw an oncologist in [place], but recently transferred her care to the [facility] as she moved in with her older son, Chon, who lives in the area. Patient has been experiencing increased nausea and vomiting, "couldn't hold anything down." Patient then received one dose of gemcitabine and continued to have N/V, so she came to the ED. CT abdomen showed metastatic disease, but no obstruction. Heme/onc was consulted who stated gemcitabine is not a particularly emetogenic drug, and given the fact that the N/V was present prior to that medication being given, it likely is not treatment-related. She was started on Reglan PRN. Heme/onc also noted that while hospice is not the only option for patient at this point, it could be a reasonable one depending on patient's goals of care. Palliative care is consulted. Thank you kindly for this consult. I will follow as needed. Allergies Allergy/AdvReac Type Severity Reaction Status Date / Time No Known Allergies Allergy Unverified 11/22/18 19:10 Home Medications Home Medications Medication Instructions Recorded Confirmed Type amlodipine 10 mg PO QAM 11/01/18 11/22/18 History bupropion HCl 150 mg PO QAM 11/01/18 11/22/18 History cyclobenzaprine 5 mg PO UD PRN 11/01/18 11/22/18 History folic acid 1 mg PO QAM 11/01/18 11/22/18 History gabapentin 300 mg PO QPM 11/01/18 11/22/18 History lorazepam 0.5 mg PO UD PRN 11/01/18 11/22/18 History morphine 15 mg PO BID 11/01/18 11/22/18 History ondansetron 8 mg PO Q4H PRN 11/01/18 11/22/18 History oxycodone 5 mg PO Q4H PRN 11/01/18 11/22/18 History polyethylene glycol 3350 [Miralax] 17 g PO QAM 11/01/18 11/22/18 History prochlorperazine maleate 10 mg PO Q4H PRN 11/01/18 11/22/18 History ranitidine HCl 150 mg PO PM 11/01/18 11/22/18 History simvastatin 20 mg PO PM 11/01/18 11/22/18 History enoxaparin [Lovenox] 120 mg SUBCUT Q12H 11/22/18 11/22/18 History sennosides-docusate sodium 2 tab PO HS PRN 11/22/18 11/22/18 History [Senna-S] Patient History Medical History Ovarian cancer Social History Preferred Language: Czech Communication Ability: Effective Fire Alarm Installer Required: Yes Beliefs That Will Affect Care: None Current Living Situation: Family Current Living Situation Comment: House Other Information That Helps Us Care for You: No Feels Safe at Home: Yes Safety Concerns: Feels Safe At This Time Smoking Status: Never smoker Hx Alcohol Use: No Hx Substance Use: No Review of Systems Constitutional: + weakness Ear, Nose, Mouth, Throat: no dysphagia Respiratory: no cough and no dyspnea Cardiovascular: no chest pain Gastrointestinal: + nausea and + vomiting; no abdominal pain Neurologic: no confusion Psychiatric: no depression and no anxiety Physical Exam Constitutional: + ill appearing and + obese; no acute distress Eyes: PERRL ENMT: external ear and nose normal, oropharynx normal Respiratory: normal respiratory effort, lungs clear to auscultation Cardiovascular: RRR, no murmur, no edema Gastrointestinal (Abdomen): Inspection/Auscultation: normal bowel sounds Percussion/Palpation: + abdomen tender and abdomen soft Neurologic: awake; not confused Psychiatric: A+Ox3, euthymic affect Insight: excellent insight Results & Data Vital Signs (Past 12 Hours) Vital Signs Temp Pulse Pulse Resp BP Pulse Ox 11/24/18 07:29 98 H 11/24/18 07:19 36.8 C 102 H 18 139/86 95 11/24/18 04:34 37.1 C 89 18 107/72 92 11/24/18 04:06 98 H 11/23/18 23:40 36.9 C 102 H 18 121/77 92 PG Care Time/CCT Prolonged Care Time Prolonged Care Time: Yes Total Prolonged Care Time: 100 Time Spent Midlevel 100 minutes with >50% of time spent at bedside with patient and family discussing condition, GOC, EOL issues. Attending Total time spent 35 minutes in addition to the 100 minutes spent by HONG Coyle for a total of 135 minutes-greater than 50% of the time spent at bedside discussing patient's goals of care as well as discussing treatment options.
[2018-11-24] MEDS: HYDROmorphone INJ 0.5 MG/0.5 ML SYR IV PRN ×2 (17:00→20:25)
[2018-11-24] MEDS: PROMETHAZINE HCL 12.5 MG in SODIUM CHLORIDE 0.9% 50 ML IV PRN (18:30)
--- NOTE | 2018-11-24 19:38 | Hospitalist Progress Note ---
Date of Service November 24, 2018 Assessment & Plan (1) Nausea & vomiting: Present on admission with persistent nausea and vomiting since chemo for ovarian cancer last week Related to chemo therapy CT abd/pelvis showed no major change compared to the prior study of 11/01/2018. Moderate abdominal and pelvic ascites. Nonobstructive bowel pattern. Continue IV antiemetic with Zofran and phenegan Reglan was very effective since her symptoms improve Starting on clear liquid diet Consider GI consult if symptoms worsening (2) Ovarian cancer: Follow with Oncology in [facility], Plan to switch care to [facility] oncology group. Hem/onc on board said that her cancer is end-stage event Very poor prognosis Palliative care on board for goals of care Pt is not ready yet to make a decision to transition to hospice yet (3) Leukocytosis: Elevated WBC possible reactive CTA chest showed loculated left basilar effusion unchanged Afebrile and blood cx and urine cx no growth WBC normalized (4) Bilateral pulmonary embolism: Recent PE in October 21 CTA chest showed findings consistent with bilateral pulmonary emboli improved from the prior exam. Continue therapeutic lovenox BID Will monitor Hbg (5) Acute renal failure superimposed on stage 3 chronic kidney disease: Creatinine on admission 1.5 (unknown baseline ) Creatinine 1.2 today Continue IVF (6) Chronic pain: Continue pain control (7) Depression: Continue Bupropion (8) Chronic anemia: Hbg 7.1 today Type ad crossed and transfused 1 unit prbc On Lovenox therapeutic dose for recent PE in October I don 't quinn to hold the Lovenox now since his blood clot was recent If Hgb continue to trend down, will force to hold the lovenox Hematology on board Monitor CBC DVT px on Lovenox BID CODE STATUS FULL CODE Subjective Pt was seen and examined Sitting in chair with no distress Pt said that she feels much better today She said that the reglan was very effective She tolerated clear liquid diet Denies any chest pain, palpitation, dizziness and SOB Physical Exam Physical Exam: General- No acute distress Head- atraumatic Eyes- PERRL, EOMI, ENT- oropharynx clear Neck- supple, no JVD Lungs- clear to auscultation Heart- regular rhythm; no murmur Abdomen- normal bowel sounds, +mild abdominal tenderness Extremities- no calf tenderness Neuro- alert, oriented x 3; PERRL, EOMI; no facial palsy; no dysarthria Skin- warm & dry Results & Data Vital Signs (Past 12 Hours) Vital Signs Temp Pulse Pulse Resp BP BP Pulse Ox 11/24/18 18:54 90 11/24/18 16:52 37 C 94 H 18 143/94 H 95 11/24/18 15:26 36.6 C 89 20 123/83 94 11/24/18 14:24 36.7 C 92 H 18 122/78 95 11/24/18 13:55 37 C 96 H 139/77 97 11/24/18 13:40 36.8 C 96 H 18 126/84 97 11/24/18 13:19 36.8 C 100 H 18 122/76 97 (1) Nausea & vomiting Vomiting type: unspecified Vomiting Intractability: intractable Qualified Code(s): R11.2 - Nausea with vomiting, unspecified (2) Ovarian cancer Laterality: unspecified laterality Qualified Code(s): C56.9 - Malignant neoplasm of unspecified ovary (3) Leukocytosis Leukocytosis type: unspecified Qualified Code(s): D72.829 - Elevated white blood cell count, unspecified
[2018-11-24] MEDS: GABAPENTIN 300 MG CAP PO SCH (21:07)
[2018-11-24] MEDS: SIMVASTATIN 40 MG TAB PO SCH (21:08)
[2018-11-25] MEDS: ENOXAPARIN 100 MG/1ML SYR SQ SCH ×3 (00:17→23:47)
[2018-11-25] MEDS: SODIUM CHLORIDE 0.9% 1000ML 1,000 ML IV SCH ×4 (00:18→19:35)
[2018-11-25 06:26] LABS: Hematocrit (blood only) 25.9 % (37-47); Hemoglobin 8.1 g/dL (12.0-16.0); Mean Corpuscular Hgb Conc 31.3 g/dL (32-36); Mean Corpuscular Volume 82.2 fL (80-100); Mean Platelet Volume 8.8 fL (7.4-10.4); Nucleated RBC # (auto) 0.03 K/uL (0-0); Nucleated RBC % (auto) 0.4 %; Platelet Count 100 K/uL (130-400); RDW Coefficient of Variation 17.2 % (11.5-14.5); RDW Standard Deviation 51.5 fL (36.4-46.3); Red Blood Count 3.15 M/uL (4.2-5.4); White Blood Count 6.03 K/uL (4.8-10.8)
[2018-11-25] MEDS: HYDROmorphone INJ 0.5 MG/0.5 ML SYR IV PRN ×2 (06:49→12:54)
[2018-11-25] MEDS: ONDANSETRON INJ 2 MG/ML 2 ML VIAL IV PRN ×2 (08:16→14:22)
[2018-11-25] MEDS: PROMETHAZINE HCL 12.5 MG in SODIUM CHLORIDE 0.9% 50 ML IV PRN (09:19)
[2018-11-25] MEDS: AMLODIPINE BESYLATE 5 MG TAB PO SCH (09:56)
[2018-11-25] MEDS: MoRPHine SULFATE IR 15 MG TAB (IMMEDIATE RELEASE) PO SCH ×2 (10:01→21:22)
[2018-11-25] MEDS: METOCLOPRAMIDE HCL INJ 5 MG/ML 2 ML VIAL IV PRN (10:02)
--- NOTE | 2018-11-25 10:36 | Palliative Care Progress Note ---
Date of Service November 25, 2018 Assessment & Plan (1) Goals of care, counseling/discussion: -Patient seen along with case loader operator this morning. Lists of home health and hospice agencies, nursing homes, personal care homes, etc. was given to patient. -Patient is having increased nausea since last night. She states that a pill got stuck last night and she vomited. Since then, her nausea has been back. -Able to keep down her liquid breakfast so far this morning. Received nausea medications. -Plan will likely be for patient to return home to her son/[id number]-jt-cdt's house after discharge. She will then meet with oncology as an outpatient and determine whether or not there are options to continue chemotherapy or if she will transition to hospice at that time. -Living will/POA paperwork done yesterday. (2) Nausea & vomiting: (3) Ovarian cancer: Subjective Patient having more nausea today. Otherwise feeling about the same. Review of Systems Constitutional: + weakness Gastrointestinal: + nausea and + vomiting; no abdominal pain Physical Exam Constitutional: + ill appearing and + obese; no acute distress Eyes: PERRL ENMT: external ear and nose normal, oropharynx normal Respiratory: normal respiratory effort, lungs clear to auscultation Cardiovascular: RRR, no murmur, no edema Neurologic: awake; not confused Psychiatric: A+Ox3, euthymic affect Insight: excellent insight Results & Data Vital Signs (Past 12 Hours) Vital Signs Temp Pulse Pulse Resp BP Pulse Ox 11/25/18 07:21 36.8 C 93 H 18 127/78 95 11/25/18 05:40 36.9 C 93 H 20 116/74 94 11/25/18 01:00 104 H 11/25/18 00:13 36.9 C 19 126/83 95 PG Care Time/CCT Total # of Minutes Spent Total Time Spent with Patient: Total time spent is greater than 50% in coordination of care (as documented) at patient's floor/unit and/or counseling patient: Time Spent Midlevel 35 minutes with >50% of the time spent at bedside with patient discussing [condition and GOC]. (1) Ovarian cancer Laterality: unspecified laterality Qualified Code(s): C56.9 - Malignant neoplasm of unspecified ovary (2) Nausea & vomiting Vomiting Intractability: intractable Vomiting type: unspecified Qualified Code(s): R11.2 - Nausea with vomiting, unspecified
[2018-11-25] MEDS: FOLIC ACID 1 MG TAB PO SCH (12:40)
[2018-11-25] MEDS: BuPROPion XL 150 MG TABCR PO SCH (12:40)
--- NOTE | 2018-11-25 15:26 | Hospitalist Progress Note ---
Date of Service November 25, 2018 Assessment & Plan (1) Nausea & vomiting: Present on admission with persistent nausea and vomiting since chemo for ovarian cancer last week received Zemcitabine CT abd/pelvis showed no major change compared to the prior study of 11/01/2018. Moderate abdominal and pelvic ascites. Nonobstructive bowel pattern. Appreciate input from hematology oncology: Dr. Rodgers Patient's abdomen/GI symptoms possibly secondary to low motility , low transition time related to ovarian carcinomatosis: Usually a very poor prognostic sign Ordered Reglan, had transient improvement of symptom Changed order to scheduled Continue IV antiemetic with Zofran and phenegan Order for x-ray of KUB: Doubt any evidence of obstruction, as abdominal exam remains very benign GI evaluation requested for recommendation of antiemetics (2) Ovarian cancer: Had treatment in [place], multiple round of chemo with minimal effectiveness Return to [place] on 2016 to be narrow with family members Follow with Oncology in [facility], Plan to switch care to [facility] oncology group. Appreciate input from Dr. Rodgers Hem/onc on board said that her cancer is end-stage event Very poor prognosis Palliative care on board for goals of care-appreciate input Pt is not ready yet to make a decision to transition to hospice yet (3) Leukocytosis: Elevated WBC possible reactive CTA chest showed loculated left basilar effusion unchanged Afebrile and blood cx and urine cx no growth WBC normalized (4) Bilateral pulmonary embolism: Recent PE in October 21 CTA chest showed findings consistent with bilateral pulmonary emboli improved from the prior exam. Continue therapeutic lovenox BID Will monitor Hbg (5) Acute renal failure superimposed on stage 3 chronic kidney disease: Creatinine on admission 1.5 (unknown baseline ) Creatinine improved with IV fluids: Avoid NSAIDs (6) Chronic pain: Continue pain control (7) Depression: Continue Bupropion (8) Chronic anemia: Hbg 7.1 improved to 8.1 after morning of PRBC transfusion To CBC DVT px on Lovenox BID therapeutic dose CODE STATUS FULL CODE Disposition: And to discharge home with family members, with home health which has been arranged already Subjective Continues to have intractable nausea vomiting, unable to tolerate clears, Has lower abdominal intermittent pain, comes in spasm/stabbing pain-getting relief with PRN meds Multiple family members at bedside Physical Exam Constitutional: + ill appearing and + obese In distress secondary to nausea Eyes: PERRL, conjunctivae normal, anicteric sclerae ENMT: external ear and nose normal, oropharynx normal Neck: trachea midline, no thyromegaly Respiratory: normal respiratory effort, lungs clear to auscultation Cardiovascular: RRR, no murmur, no edema Gastrointestinal (Abdomen): Inspection/Auscultation: + abdomen distended Percussion/Palpation: + abdomen tender and abdomen soft Abdomen distended, soft, no rebound, hyperactive bowel sounds noted, tenderness palpation of bilateral lower abdomen Musculoskeletal: no cyanosis or clubbing, extremities motor strength 5/5 Skin: no rashes, warm and dry Neurologic: PERRL, EOMI, accommodation nl, no face palsy, no dysarthria Psychiatric: A+Ox3, euthymic affect Results & Data Vital Signs (Past 12 Hours) Vital Signs Temp Pulse Pulse Resp BP Pulse Ox 11/25/18 11:20 36.4 C L 94 H 18 132/82 92 11/25/18 08:00 97 H 11/25/18 07:21 36.8 C 93 H 18 127/78 95 11/25/18 05:40 36.9 C 93 H 20 116/74 94 (1) Ovarian cancer Laterality: unspecified laterality Qualified Code(s): C56.9 - Malignant neoplasm of unspecified ovary (2) Leukocytosis Leukocytosis type: unspecified Qualified Code(s): D72.829 - Elevated white blood cell count, unspecified (3) Nausea & vomiting Vomiting Intractability: intractable Vomiting type: unspecified Qualified Code(s): R11.2 - Nausea with vomiting, unspecified
[2018-11-25] MEDS ORDERED: PROMETHAZINE HCL 25 MG in SODIUM CHLORIDE 0.9% 50 ML IV PRN (16:12)
[2018-11-25] MEDS: D5W AND LACTATED RINGERS 1,000 ML IV SCH (16:18)
[2018-11-25] MEDS: METOCLOPRAMIDE HCL INJ 5 MG/ML 2 ML VIAL IV SCH (21:16)
[2018-11-26] MEDS: D5W AND LACTATED RINGERS 1,000 ML IV SCH (04:05)
[2018-11-26] MEDS: METOCLOPRAMIDE HCL INJ 5 MG/ML 2 ML VIAL IV SCH ×3 (06:16→19:51)
[2018-11-26 06:31] LABS: Hematocrit (blood only) 26.8 % (37-47); Hemoglobin 8.6 g/dL (12.0-16.0); Mean Corpuscular Hgb Conc 32.1 g/dL (32-36); Mean Corpuscular Volume 83.8 fL (80-100); Nucleated RBC # (auto) 0.07 K/uL (0-0); Nucleated RBC % (auto) 0.9 %; RDW Standard Deviation 51.7 fL (36.4-46.3); White Blood Count 7.94 K/uL (4.8-10.8)
[2018-11-26 07:02] LABS: Mean Platelet Volume 8.9 fL (7.4-10.4); Platelet Count 81 K/uL (130-400); Platelet Estimate Decreased (Normal)
[2018-11-26 07:09] LABS: BUN Creatinine Ratio 16.9 (10-20); Calcium 7.7 mg/dl (8.5-10.1); Creatinine Clr Calc Pharmacy 72.7 ml/min; Est GFR (African American) 58.4; Est GFR (Non-African American) 50.4; Potassium 3.6 mmol/L (3.5-5.1)
[2018-11-26] MEDS: ONDANSETRON INJ 2 MG/ML 2 ML VIAL IV PRN (08:05)
[2018-11-26] MEDS: MoRPHine SULFATE IR 15 MG TAB (IMMEDIATE RELEASE) PO SCH ×2 (09:19→21:55)
[2018-11-26] MEDS: BuPROPion XL 150 MG TABCR PO SCH (09:21)
[2018-11-26] MEDS: FOLIC ACID 1 MG TAB PO SCH (09:21)
[2018-11-26 09:41] LABS: Albumin Level 1.5 gm/dl (3.4-5.0); Bilirubin Direct 0.2 mg/dl (0-0.2); Bilirubin,Total 0.5 mg/dl (0.2-1); Prealbumin 4.3 mg/dl (20-40); Total Protein 5.1 gm/dl (6.4-8.2)
--- NOTE | 2018-11-26 10:54 | Gastrointestinal Consultation ---
Date of Consultation November 26, 2018 Assessment & Plan (1) Vomiting: Ms. Dayna Colindres is a 63 yr old female with peritoneal cancer with abdominal/pelvic carcinomatosis with intractable nausea/vomiting, also with some dysphagia. Differentials considered include: GI dysmotility, chemo related nausea, esophagitis, gastritis, duodenitis. Plan: 1. EGD today by Dr. Knowles. 2. If no cause of nausea/vomiting on EGD then would suggest Emend. Present on Admission?: Yes (2) Ovarian cancer: Present on Admission?: Yes Supervising Physician Co-Signing Physician Notes I saw and evaluated the patient. She has a history of peritoneal carcinomatosis and recently relocated to this area as her therapy was failing at home in [place] and wanted to be closer to family. The patient notes abdominal distention and progressive nausea with effortless emesis. Physical examination Frail-appearing female in no obvious distress Abdomen: Mild distention noted fluid wave noted Impression: Patient with nausea and recurrent vomiting likely related to her peritoneal carcinomatosis. We are certainly happy to try further evaluation with an endoscopic exam to determine if there is an endoscopically treatable lesion such as a pyloric or esophageal stricture. I discussed the risks of the procedure to include bleeding, infection, perforation with the patient History of Present Illness Reason for Consultation: Ms. Dayna Colindres is a 63 yr old female with a hx of depression, hypothyroidism, CKD3, PEs and peritoneal carcinoma. She presented to the ED on 11/22 for vomiting. GI is consulted for nausea/vomiting. The pt has primary peritoneal carcinoma with carcinomatosis and ascites. This was initially dx'ed in [place] in Apr 2017. She has not responded well to several chemo regimes. Last , she received a tx of gemcitabine and has had intractable nausea/vomiting since then. She describes a low level, constant nausea and poor appetite for months. Additionally, since the gemcitabine infusion last , she has had vomiting. She describes this as swallowing OK, but the food either doesn't get all the way to the stomach and comes back up or she vomits it back up after a few minutes. On arrival, CT with IV contrast without obstruction. Hem/onc impression is nausea/vomiting caused by GI dysmotility. Metoclopramide was started (first dose last night at 10PM). She is also on: ondansetron 4mg IV Q 6 most recently taking this morning without much improvement. Previously on promethazine 12.5mg which was dc'ed due to not being effective. She is on Lovenox BID for PEs and platelets are 81. No leukocytosis. Hb is 8.6. LFTs are mildly elevated and al bumin is very low at 1.5. The pt is awake, alert, oriented, sitting up in a bedside chair, is hemodynamically stable with mild, diffuse abdominal discomfort. Attending Physician: Jaylene Serrano MD Allergies Allergy/AdvReac Type Severity Reaction Status Date / Time No Known Allergies Allergy Unverified 11/22/18 19:10 Home Medications Home Medications Medication Instructions Recorded Confirmed Type amlodipine 10 mg PO QAM 11/01/18 11/22/18 History bupropion HCl 150 mg PO QAM 11/01/18 11/22/18 History cyclobenzaprine 5 mg PO UD PRN 11/01/18 11/22/18 History folic acid 1 mg PO QAM 11/01/18 11/22/18 History gabapentin 300 mg PO QPM 11/01/18 11/22/18 History lorazepam 0.5 mg PO UD PRN 11/01/18 11/22/18 History morphine 15 mg PO BID 11/01/18 11/22/18 History ondansetron 8 mg PO Q4H PRN 11/01/18 11/22/18 History oxycodone 5 mg PO Q4H PRN 11/01/18 11/22/18 History polyethylene glycol 3350 [Miralax] 17 g PO QAM 11/01/18 11/22/18 History prochlorperazine maleate 10 mg PO Q4H PRN 11/01/18 11/22/18 History ranitidine HCl 150 mg PO PM 11/01/18 11/22/18 History simvastatin 20 mg PO PM 11/01/18 11/22/18 History enoxaparin [Lovenox] 120 mg SUBCUT Q12H 11/22/18 11/22/18 History sennosides-docusate sodium 2 tab PO HS PRN 11/22/18 11/22/18 History [Senna-S] Patient History Medical History Ovarian cancer Acute renal failure Anemia Bilateral pulmonary embolism CKD (chronic kidney disease), stage III Chronic pain Dementia Hypertension Social History Preferred Language: Amharic Communication Ability: Effective Plumbing Service Technician Required: Yes Beliefs That Will Affect Care: None Current Living Situation: Family Current Living Situation Comment: House Other Information That Helps Us Care for You: No Feels Safe at Home: Yes Safety Concerns: Feels Safe At This Time Smoking Status: Never smoker Hx Alcohol Use: No Hx Substance Use: No Review of Systems Review of Systems: ROS: Gen: Weakness, but no fevers, + weight loss Eyes: No eye redness, or pain, no recent vision changes Resp: Mild chronic SOB, no cough Cardio: No palpitations/irregular beats, no chest pain GI: + mild, diffuse abdominal pain, no nausea/vomiting : Denies pain on urination Skin: No jaundice, itching or new rashes Physical Exam Constitutional: WD/WN, vitals as above + obese Eyes: PERRL, conjunctivae normal, anicteric sclerae ENMT: external ear and nose normal, oropharynx normal Neck: trachea midline, no thyromegaly Respiratory: normal respiratory effort, lungs clear to auscultation Cardiovascular: Rate/Rhythm: regular rate and regular rhythm ascites, mild bilat lower leg edema Skin: no rashes, warm and dry Neurologic: PERRL, EOMI, accommodation nl, no face palsy, no dysarthria Psychiatric: Orientation: oriented x 3 Lymphatic: no cervical or axillary lymphadenopathy Results & Data Vital Signs (Past 12 Hours) Vital Signs Temp Pulse Resp BP Pulse Ox 11/26/18 07:00 36.7 C 97 H 18 137/84 98 11/26/18 00:00 37.2 C 94 H 18 112/75 94 Laboratory Results WBC 7.9, Hb 9.6, Hct 26, Platelets 81, Na 135, K 3.6, BUN 19, Cr 1.14 T Bili 0.5, AST 38, ALT 23, Alk Phos [address] abd/pelvis with IV contrast only 11/22/18: 1. No major change compared to the prior study of 11/01/2018. 2. Moderate abdominal and pelvic ascites. 3. Nonobstructive bowel pattern. 4. Fluid filled esophagus possibly related to reflux. 5. Mild carcinomatosis unchanged. (1) Vomiting Nausea presence: with nausea Vomiting Intractability: intractable Vomiting type: unspecified Qualified Code(s): R11.2 - Nausea with vomiting, unspecified
--- NOTE | 2018-11-26 12:25 | Hospitalist Progress Note ---
Date of Service November 26, 2018 Assessment & Plan (1) Nausea & vomiting: Present on admission with intractable nausea and vomiting since chemo for ovarian cancer last week received Zemcitabine CT abd/pelvis showed no major change compared to the prior study of 11/01/2018. Moderate abdominal and pelvic ascites. Nonobstructive bowel pattern. Appreciate input from hematology oncology: Dr. Rodgers Does not believe chemo treatment caused to have GI symptoms, gemcitabine statin least side effect for nausea vomiting also effect of chemo should have been gone by now Patient's abdomen/GI symptoms possibly secondary to low motility , low transition time related to ovarian carcinomatosis: Usually a very poor prognostic sign Ordered Reglan, had transient improvement of symptom Recommend continued every 8 hours Continue IV antiemetic with Zofran and phenegan PRN GI evaluation requested for recommendation of antiemetics Bedside long discussion with patient's family and Dr. Rodgers, Overall poor prognosis of this progressive ovarian cancer emphasized multiple times by the hematology oncology Dr. Rodgers did suggest of possible venting gastrostomy tube, to elevate intractable vomiting Patient and family wants to consider an explore the option before making any decision (2) Ovarian cancer: Had treatment in [place], multiple round of chemo with minimal effectiveness Returned to [place] on 2016 to be narrow with family members Follows with Oncology in [facility], Plan to switch care to [facility] oncology group. Appreciate input from Dr. Rodgers Hem/onc on board said that her cancer is end-stage event Very poor prognosis Palliative care on board for goals of care-appreciate input Pt is not ready yet to make a decision to transition to hospice yet (3) Leukocytosis: Elevated WBC possible reactive CTA chest showed loculated left basilar effusion unchanged Afebrile and blood cx and urine cx no growth WBC normalized (4) Bilateral pulmonary embolism: Recent PE in October 21 CTA chest showed findings consistent with bilateral pulmonary emboli improved from the prior exam. Continue therapeutic lovenox BID Will monitor Hbg (5) Acute renal failure superimposed on stage 3 chronic kidney disease: Creatinine on admission 1.5 (unknown baseline ) Creatinine improved with IV fluids: Avoid NSAIDs (6) Chronic pain: Continue pain control morphine sulfate long-acting twice daily, patient having hard time swallowing pills, Ordered for Roxanol as needed (7) Depression: Continue Bupropion (8) Chronic anemia: Hbg 7.1 improved to 8.1 after 1 unit of of PRBC transfusion To CBC DVT px on Lovenox BID therapeutic dose CODE STATUS FULL CODE Disposition: Plan to discharge home with family members, with home health which has been arranged already Subjective Patient sitting on chair today, mentions lower abdominal pain has improved somewhat, Still have persistent nausea, only able to keep down minimum fluids/sips of water ice chips Had not had any bowel movement since admission(last 4 days) Physical Exam Constitutional: + ill appearing and + obese Eyes: PERRL, conjunctivae normal, anicteric sclerae ENMT: external ear and nose normal, oropharynx normal Neck: trachea midline, no thyromegaly Respiratory: normal respiratory effort, lungs clear to auscultation Cardiovascular: RRR, no murmur, no edema Gastrointestinal (Abdomen): Inspection/Auscultation: + abdomen distended Percussion/Palpation: + abdomen tender and abdomen soft Musculoskeletal: no cyanosis or clubbing, extremities motor strength 5/5 Skin: no rashes, warm and dry Neurologic: PERRL, EOMI, accommodation nl, no face palsy, no dysarthria Psychiatric: A+Ox3, euthymic affect Results & Data Vital Signs (Past 12 Hours) Vital Signs Temp Pulse Resp BP Pulse Ox 11/26/18 07:00 36.7 C 97 H 18 137/84 98 (1) Ovarian cancer Laterality: unspecified laterality Qualified Code(s): C56.9 - Malignant neoplasm of unspecified ovary (2) Leukocytosis Leukocytosis type: unspecified Qualified Code(s): D72.829 - Elevated white blood cell count, unspecified (3) Nausea & vomiting Vomiting Intractability: intractable Vomiting type: unspecified Qualified Code(s): R11.2 - Nausea with vomiting, unspecified
[2018-11-26] MEDS: POLYETHYLENE (MIRALAX) 17 GM PACK PO SCH (13:05)
[2018-11-26] MEDS ORDERED: PROPOFOL IV EMULSION 10 MG/ML 20 ML VIAL IV ONE (13:27)
[2018-11-26] MEDS ORDERED: LIDOCAINE HCL 2% 2 ML VIAL/AMP(20MG/ML) INFIL ONE (13:27)
--- NOTE | 2018-11-26 14:00 | History & Physical Bridge Note ---
Date of Service November 26, 2018 History & Physical Bridge Note I have examined the patient, reviewed the History & Physical and in the interval since the performance of the History & Physical I have noted the following changes of clinical significance: The patient has recurrent nausea and vomiting which is been ongoing for several months. We suspect this is related to her underlying peritoneal carcinomatosis but are willing to do an endoscopy to look for an endoscopically treatable lesion such as a esophageal stricture or pyloric stricture. I discussed the risks and benefits of the upper endoscopy with the patient to include bleeding, infection, perforation, aspiration and need for follow-up exams. Unfortunately, due to the peritoneal carcinomatosis and ascites I would not be comfortable performing a venting gastrostomy tube.
--- NOTE | 2018-11-26 14:06 | Anesthesiology Consultation ---
Date of Service November 26, 2018 Assessment & Plan (1) Encounter for pre-operative examination: History Surgery Operation Date: 11/26/18 09:30 Proposed Procedures p Esophagogastroduodenoscopy Dr Benson Knowles Height/Weight Height: 5 ft 4 in Weight: 152.1 kg Allergies Allergy/AdvReac Type Severity Reaction Status Date / Time No Known Allergies Allergy Unverified 11/22/18 19:10 Medications Home Medications Medication Instructions Recorded Confirmed Last Taken amlodipine 10 mg PO QAM 11/01/18 11/22/18 Unknown bupropion HCl 150 mg PO QAM 11/01/18 11/22/18 Unknown cyclobenzaprine 5 mg PO UD PRN 11/01/18 11/22/18 Unknown folic acid 1 mg PO QAM 11/01/18 11/22/18 Unknown gabapentin 300 mg PO QPM 11/01/18 11/22/18 Unknown lorazepam 0.5 mg PO UD PRN 11/01/18 11/22/18 Unknown morphine 15 mg PO BID 11/01/18 11/22/18 Unknown ondansetron 8 mg PO Q4H PRN 11/01/18 11/22/18 Unknown oxycodone 5 mg PO Q4H PRN 11/01/18 11/22/18 Unknown polyethylene glycol 3350 [Miralax] 17 g PO QAM 11/01/18 11/22/18 Unknown prochlorperazine maleate 10 mg PO Q4H PRN 11/01/18 11/22/18 Unknown ranitidine HCl 150 mg PO PM 11/01/18 11/22/18 Unknown simvastatin 20 mg PO PM 11/01/18 11/22/18 Unknown enoxaparin [Lovenox] 120 mg SUBCUT Q12H 11/22/18 11/22/18 11/22/18 10:00 sennosides-docusate sodium 2 tab PO HS PRN 11/22/18 11/22/18 Unknown [Senna-S] Active Medications Generic Name Dose Route Start Last Admin Trade Name Freq PRN Reason Stop Dose Admin Bupropion HCl 150 mg 11/23/18 09:00 11/26/18 09:21 Wellbutrin-Xl PO 12/23/18 08:59 [facility] Enoxaparin Sodium 100 mg 11/23/18 01:00 11/25/18 23:47 Lovenox SQ 12/23/18 00:59 100 mg Q12H TRACI Administration Folic Acid 1 mg 11/23/18 09:00 11/26/18 09:21 Folvite PO 12/23/18 08:59 Not Given QAM TRACI Hydromorphone HCl 0.5 mg 11/22/18 23:13 11/25/18 12:54 Dilaudid IV 12/06/18 23:12 0.5 mg Q4H PRN Administration Pain Dextrose/Lactated Ringer's 1,000 mls @ 80 mls/hr 11/25/18 16:15 11/26/18 04:05 D5w And Lactated Ringers IV 12/25/18 16:14 80 mls/hr .[id number] TRACI Administration Metoclopramide HCl 10 mg 11/25/18 22:00 11/26/18 06:16 Reglan IV 12/25/18 21:59 10 mg Q8 TRACI Administration Morphine Sulfate 15 mg 11/23/18 09:00 11/26/18 09:19 Morphine Sulfate Ir PO 12/07/18 08:59 15 mg BID TRACI Administration Ondansetron HCl 4 mg 11/22/18 23:13 11/26/18 08:05 Zofran IV 12/22/18 23:12 4 mg Q6H PRN Administration Nausea Polyethylene Glycol 17 gm 11/26/18 10:00 11/26/18 13:05 Miralax Powder Packet PO 12/26/18 09:59 Not Given DAILY TRACI NPO Date Last Intake of Fluids: 11/26/18 Time Last Intake of Fluids: 10:00 Last Intake of Fluids Comment: ice chips Date Last Intake of Solids: 11/26/18 Time Last Intake of Solids: 09:00 Last Intake of Solids Comment: two bites of pudding Past Medical History Medical History Ovarian cancer Acute renal failure Anemia Bilateral pulmonary embolism CKD (chronic kidney disease), stage III Chronic pain Dementia Hypertension Social History Smoking Status: Never smoker Hx Alcohol Use: No Hx Substance Use: No Physical Exam Vital Signs Last Vital Signs Temp 36.7 C 11/26/18 07:00 Pulse 97 H 11/26/18 07:00 Resp 18 11/26/18 07:00 BP 137/84 11/26/18 07:00 Pulse Ox 98 11/26/18 07:00 Testing Laboratory Results 11/26/18 06:06 11/26/18 06:06 Urine Color Dark Yellow 11/23/18 05:52 Urine Appearance Clear (Clear) 11/23/18 05:52 Urine pH 5.0 (4.5-7.5) 11/23/18 05:52 Ur Specific [place] > 1.045 (1.000-1.030) H 11/23/18 05:52 Urine Protein 1+ (Negative) H 11/23/18 05:52 Urine Glucose (UA) Negative (Negative) 11/23/18 05:52 Urine Ketones Negative (Negative) 11/23/18 05:52 Urine Nitrite Negative (Negative) 11/23/18 05:52 Ur Leukocyte Esterase Negative (Negative) 11/23/18 05:52 Urine RBC 0-4 /hpf (0-4) 11/23/18 05:52 Urine WBC 10-30 /hpf (0-5) H 11/23/18 05:52 Ur Epithelial Cells >30 /lpf (0-5) H 11/23/18 05:52 Blood Type B Positive 11/24/18 09:51 Antibody Screen POSITIVE A 11/24/18 09:51 11/22/18 19:09 Aerobic Blood Culture - Preliminary Blood No growth in Aerobic bottle after 48 hours. Anaerobic Blood Culture - Final 11/22/18 19:09 Anaerobic Blood Culture - Preliminary Blood No growth in Anaerobic bottle after 48 hours. 11/23/18 05:52 Urine Culture - Final Urine,Clean Catch Three types of organisms present, all moderate counts. Repeat collection recommended. No further identifications or sensitivities to follow. Electrocardiogram Date: 11/22/18 Normal sinus rhythm Cannot rule out Anterior infarct (cited on or before 01-NOV-2018) Abnormal ECG When compared with ECG of 01-NOV-2018 11:37, QRS duration has decreased T wave inversion no longer evident in Anterior leads Confirmed by Casimiro Carmichael ([id number]) on 11/23/2018 3:54:31 PM Chest X-Ray Date: 11/22/18 Unchanging infiltrate/effusion left base. No change from the prior study.
[2018-11-26] MEDS ORDERED: ONDANSETRON INJ 2 MG/ML 2 ML VIAL ONE (14:25)
--- NOTE | 2018-11-26 14:50 | Communication Note ---
Date of Service: November 26, 2018 The patient underwent endoscopy this afternoon. She has mild esophagitis of the distal esophagus. The stomach was very difficult to distend most consistent with her peritoneal carcinomatosis. No obvious stricture was noted in the esophagus stomach or proximal duodenum. Recommendation Protonix 40 mg 1 times daily Try Emend for nausea Please call with any additional questions or concerns
--- NOTE | 2018-11-26 14:54 | GI REPORT ---
Patient Name: Dayna Colindres Procedure Date: 11/26/2018 2:28 PM Date of : 1955 Admit Type: Inpatient Age: 63 Gender: Female Attending MD: Sunita Knowles DO Procedure: Upper GI endoscopy Providers: Sunita Knowles DO Referring MD: Jaylene Serrano Indications: Nausea with vomiting Medicines: Monitored Anesthesia Care Complications: No immediate complications. Estimated blood loss: Minimal. Estimated Blood Loss: Estimated blood loss was minimal. Procedure: Pre-Anesthesia Assessment: - Prior to the procedure, a History and Physical was performed, and patient medications, allergies and sensitivities were reviewed. The patient's tolerance of previous anesthesia was reviewed. - The risks and benefits of the procedure and the sedation options and risks were discussed with the patient. All questions were answered and informed consent was obtained. - Patient identification and proposed procedure were verified prior to the procedure by the physician, the nurse and the sales clerk food. The procedure was verified in the procedure room. - Pre-procedure physical examination revealed no contraindications to sedation. - ASA Grade Assessment: IV - A patient with severe systemic disease that is a constant threat to life. - After reviewing the risks and benefits, the patient was deemed in satisfactory condition to undergo the procedure. - The anesthesia plan was to use monitored anesthesia care (MAC). - Immediately prior to administration of medications, the patient was re-assessed for adequacy to receive sedatives. - The heart rate, respiratory rate, oxygen saturations, blood pressure, adequacy of pulmonary ventilation, and response to care were monitored throughout the procedure. - The physical status of the patient was re-assessed after the procedure. After obtaining informed consent, the endoscope was passed under direct vision. Throughout the procedure, the patient's blood pressure, pulse, and oxygen saturations were monitored continuously. The Endoscope was introduced through the mouth, and advanced to the third part of duodenum. The upper GI endoscopy was accomplished without difficulty. The patient tolerated the procedure well. Findings: LA Grade B (one or more mucosal breaks greater than 5 mm, not extending between the tops of two mucosal folds) esophagitis with no bleeding was found in the lower third of the esophagus. Some fluid was noted within the esophagus which was aspirated through the endoscope prior to completion of the procedure A deformity was found in the entire examined stomach. This consisted of compression of the entire stomach and did not allow for easy distention. No gross lesion was seen within the stomach. The examined duodenum was normal. Some fluid was noted in the distal duodenum. Impression: - LA Grade B reflux esophagitis. - Acquired deformity in the entire stomach. This is likely related to peritoneal carcinomatosis - Normal examined duodenum. - No specimens collected. Recommendation: - Return patient to hospital [facility] for ongoing care. - Use Protonix (pantoprazole) 40 mg PO daily. - Try Emend for nausea. Symptoms likely related to peritoneal carcinomatosis. Sunita Knowles D.O. Sunita Knowles, 11/26/2018 2:54:24 PM This report has been signed electronically. Note Initiated On: 11/26/2018 2:28 PM Number of Addenda: 0 I attest to the content of the Intraoperative Record and orders documented therein, exceptions below {[id number]}
[2018-11-26] MEDS: HEPARIN 100 UNIT/ML 5ML FLUSH FLUSH PRN ×3 (15:21→17:18)
[2018-11-26] MEDS: ENOXAPARIN 100 MG/1ML SYR SQ SCH (16:05)
--- NOTE | 2018-11-26 16:45 | Anesthesiology Progress Note ---
Date of Service November 26, 2018 Anesthesia Post Procedure Vital Signs Vital Signs: Temp Pulse Resp BP Pulse Ox 11/26/18 15:19 95 H 129/81 92 11/26/18 15:04 95 H 119/81 96 11/26/18 14:49 36.7 C 95 H 103/80 98 11/26/18 07:00 36.7 C 97 H 18 137/84 98 11/26/18 00:00 37.2 C 94 H 18 112/75 94 11/25/18 20:56 37.4 C 97 H 22 120/84 92 Pain Intensity Abdomen: Pain Intensity: 3 Transfer of Care Handoff Completed per policy Notes Mental Status: alert / awake / arousable and participated in evaluation Patient Amnestic to Procedure: Yes Nausea / Vomiting: adequately controlled Pain: adequately controlled Airway Patency, RR, SpO2: stable & adequate BP & HR: stable & adequate Hydration State: stable & adequate Anesthetic Complications: no major complications apparent and Pt Satisfied with anesthetic care Notes: The patient is a 63 y/o with a history of ovarian carcinoma, ARF, PE, HTN, hypothyroidism and anemia s/p EGD with Dr. Knowles. The patient had a small amount of clear emesis during the procedure which was quickly suctioned from the oropharynx. She did not appear to aspirate and did not drop her oxygen saturation. The patient did well in PACU with no complaints. She is saturating 92% on 1L nc. She stated that she sometimes wears 2L nc at night at home. She has a difficult time taking a deep breath due to restriction from her ascites. Her lung exam is unchanged from preoperatively. Dr. Serrano who is taking care of the patient on the floor was given a full report on perioperative events.
[2018-11-26] MEDS ORDERED: LORazepam 0.5 MG TAB SL PRN (16:59)
--- NOTE | 2018-11-26 17:33 | Hospitalist Progress Note ---
Date of Service November 26, 2018 Subjective Attending addendum: Patient had EGD done by Dr. Knowles today Shows reflux esophagitis -Severe deformity in the entire stomach, leading to compression of the entire stomach, likely related to external compression from peritoneal carcinomatosis very poor prognosis, There is minimum capacity in stomach possible leading to intractable nausea vomiting Patient has large amount of ascites and abdominal cavity secondary to malignancy peritoneal carcinomatosis Ordered for paracentesis tomorrow by radiology ultrasound-guided Patient had abdominal paracentesis done twice at [facility] 1 week apart, last paracentesis was last with drainage of approximately 4 L of fluid Poor prognosis and outcome discussed in detail with patient and patient's [id number] both understands the progression of disease Already aware of hospice service, at present the home health visiting nurse service can be transition to hospice when needed Discussed CODE STATUS, does not want any resuscitative measure CODE STATUS changed to DNR/DNI Jaylene Serrano MD Results & Data Vital Signs (Past 12 Hours) Vital Signs Temp Pulse Resp BP Pulse Ox 11/26/18 15:19 95 H 129/81 92 11/26/18 15:04 95 H 119/81 96 11/26/18 14:49 36.7 C 95 H 103/80 98 11/26/18 07:00 36.7 C 97 H 18 137/84 98
[2018-11-26] MEDS: MoRPHine SULFATE 10 MG/0.5 ML UDP PO PRN (19:50)
[2018-11-27] MEDS: ENOXAPARIN 100 MG/1ML SYR SQ SCH ×2 (01:04→12:33)
[2018-11-27] MEDS: MoRPHine SULFATE 10 MG/0.5 ML UDP PO PRN ×4 (04:54→20:48)
[2018-11-27] MEDS: HEPARIN 100 UNIT/ML 5ML FLUSH FLUSH PRN (06:10)
[2018-11-27] MEDS: METOCLOPRAMIDE HCL INJ 5 MG/ML 2 ML VIAL IV SCH ×3 (06:23→22:06)
[2018-11-27 06:53] LABS: INR 1.1 (0.9-1.1); Partial Thromboplastin Ratio 1.6; Partial Thromboplastin Time 43.9 Seconds (21.0-31.0); Prothrombin Time 10.8 Seconds (9.0-12.0)
[2018-11-27] MEDS: POLYETHYLENE (MIRALAX) 17 GM PACK PO SCH (08:15)
[2018-11-27] MEDS: ONDANSETRON INJ 2 MG/ML 2 ML VIAL IV PRN (08:21)
[2018-11-27] MEDS: MoRPHine SULFATE IR 15 MG TAB (IMMEDIATE RELEASE) PO SCH (08:22)
[2018-11-27] MEDS ORDERED: ALBUMIN 25% 50 ML IV ONE (10:45)
--- NOTE | 2018-11-27 10:53 | Ultrasound Report ---
US paracentesis abd w/image CLINICAL HISTORY: malignant ascities /peritoneal carcinomatosis ascites COMPARISON STUDY: No previous studies for comparison. PROCEDURE: The risks, benefits, and alternatives to the procedure were discussed with the patient inc luding the risk of bleeding, infection and injury to adjacent structures. The patient agreed to the procedure and informed written consent was obtained. The procedure was performed by Dr. Royce magana a time out. Following real-time ultrasound localization, the skin was prepped and draped. Josue magana local anesthesia with Xylocaine, the sheath paracentesis needle was inserted and approximately 3 .7 liters of straw-colored fluid was removed by vacuum suction. The patient tolerated the procedure well and no immediate complications were evident. IMPRESSION: Ultrasound-guided paracentesis with removal of 3.7 liters of ascites. The above report was generated using voice recognition software. It may contain grammatical, syntax or spelling errors. Electronically signed by: Gopal Crane M.D. 11/27/2018 10:51 AM
[2018-11-27] MEDS ORDERED: fentaNYL 12 MCG/HR TDSY TD SCH (11:00)
--- NOTE | 2018-11-27 11:05 | Hospitalist Progress Note ---
Date of Service November 27, 2018 Assessment & Plan (1) Intractable abdominal pain: Secondary to metastatic ovarian cancer with peritoneal carcinomatosis, recurrent malignant ascites pain control had has Been a difficult issue as patient could not keep any p.o. down secondary to nausea vomiting P.o. pain meds, OxyIR 15 mg twice daily (home med)-discontinued Started on trial of fentanyl patch 12 mcg transdermal every 72 hours may need titration Given on level of pain control versus sedation Ordered for daily MiraLAX scheduled dose- To prevent narcotic induced constipation-high risk Dulcolax suppository as needed, if no bowel movement in 2 days Patient's overall prognosis remains extremely poor (2) Nausea & vomiting: Present on admission with intractable nausea and vomiting since chemo for ovarian cancer last week received Zemcitabine CT abd/pelvis showed no major change compared to the prior study of 11/01/2018. Moderate abdominal and pelvic ascites. Nonobstructive bowel pattern. Bedside long discussion with patient's family and Dr. Rodgers, Overall poor prognosis of this progressive ovarian cancer emphasized multiple times by the hematology oncology GI eval requested, appreciate input Sted EGD: Shows Severe deformity found in entire examined stomach. This consisted of compression of the entire stomach-likely related to external pressure by peritoneal carcinomatosis Discussed with GI: Dr. Sunita Knowles-given the significant malignant ascites, venting gastrostomy may not be an option for the patient, high risk for perforation, dislodgment of tube (3) Ovarian cancer: Had treatment in [place], multiple round of chemo with minimal effectiveness Returned to [place] on 2016 to be with family members Follows with Oncology in [facility], Patient wants to follow with hematology oncology [facility] oncology group. Appreciate input from Dr. Rodgers Will need clinic follow-up arranged with Dr. Rosales Patient and family members updated by Dr. Rodgers, regarding advanced noncurable and terminal status of metastatic ovarian cancer Does recommend hospice/palliative care Very poor prognosis Palliative care on board -discussed option for goals of care-appreciate input Pt is not ready yet to make a decision to transition to hospice yet (4) Bilateral pulmonary embolism: Recent PE in October 21 CTA chest showed findings consistent with bilateral pulmonary emboli improved from the prior exam. Continue therapeutic lovenox BID-very high risk/hypercoagulable status secondary to metastatic ovarian CA Overall prognosis remains very poor (5) Acute renal failure superimposed on stage 3 chronic kidney disease: Secondary to poor p.o. intake, nausea vomiting Given IV fluid Creatinine remains stable (6) Metastatic cancer: Metastatic ovarian cancer, not responsive to prior chemo treatment, with peritoneal carcinomatosis, malignant ascites (7) Malignant ascites: Recurrent malignant ascites secondary to metastatic ovarian CA with peritoneal carcinomatosis Patient needs requiring paracentesis almost every week with drainage of approximately 3-4 L of ascitic fluid Had 3 paracentesis done at [facility] Status post paracentesis with drainage of 3 L of ascitic fluid today, Ordered for 1 unit of albumin IV to be given postprocedure Given the rate of reaccumulation of ascites/requirement for frequent paracentesis: Suggestive of a very active aggressive malignancy involving the peritoneal lining Overall prognosis remains very poor Family and patient aware Patient wants to seek the option of intermittent paracentesis as an outpatient for comfort We discussed with hematology oncology for the option for palliative outpatient paracentesis Patient wants to follow-up with hematology oncology Dr. Rosales/Dr. Rodgers at [facility] physician group (8) Chronic anemia: Secondary to chronic anemia due to widespread malignancy Hbg 7.1 improved to 8.1 after 1 unit of of PRBC transfusion DVT px on Lovenox BID therapeutic dose-recent bilateral PE CODE STATUS : DNR/DNI after lengthy discussion with patient and family Disposition: Option for hospice/palliative care discussed by myself and hematology oncology Palliative care team also had a mackenzie discussion with patient's family and patient Given all the information, update regarding pain control option, prognosis Patient has not made up her mind for hospice care yet Will go home with family support, [facility] home nursing agency, which can be transition to hospice care if patient's clinical condition declines further Subjective Had continued nausea vomiting this morning, Able to finish popsicle, but with attempt to take OxyIR pill caused vomiting Had ultrasound-guided paracentesis with drainage of approximately 3 L of ascitic fluid Patient does not feel any difference on abdominal distention, does not have any active abdominal pain or discomfort Discussed with patient regarding pain control issue, On oral p.o. are causing her to vomit(patient has external compression deformity of stomach secondary to peritoneal carcinomatosis) We will change to fentanyl patch, DC OxyIR Roxanol as needed ordered for breakthrough pain, patient had not had vomiting episode due to that Overall prognosis remains very poor Poor prognosis and outcome discussed in detail with patient and patient's [id number] both understands the progression of disease Already aware of hospice service, at present the home health visiting nurse service can be transition to hospice when needed Patient and family wants to follow-up with hematology oncology Dr. Rosales in clinic to consider scheduling intermittent scheduled paracentesis comfort Physical Exam Constitutional: + ill appearing and + obese Eyes: PERRL, conjunctivae normal, anicteric sclerae ENMT: external ear and nose normal, oropharynx normal Neck: trachea midline, no thyromegaly Respiratory: normal respiratory effort, lungs clear to auscultation Cardiovascular: RRR, no murmur, no edema Gastrointestinal (Abdomen): Inspection/Auscultation: + abdomen distended Percussion/Palpation: + abdomen tender and abdomen soft Musculoskeletal: no cyanosis or clubbing, extremities motor strength 5/5 Skin: no rashes, warm and dry Neurologic: PERRL, EOMI, accommodation nl, no face palsy, no dysarthria Psychiatric: Orientation: alert and oriented x 3 Affect: + flat affect Results & Data Vital Signs (Past 12 Hours) Vital Signs Temp Pulse Resp BP Pulse Ox 11/27/18 07:24 36.5 C 101 H 21 123/84 91 11/27/18 04:00 36.9 C 98 H 20 120/83 92 11/27/18 00:00 36.8 C 102 H 18 123/85 94 (1) Ovarian cancer Laterality: unspecified laterality Qualified Code(s): C56.9 - Malignant neoplasm of unspecified ovary (2) Acute renal failure superimposed on stage 3 chronic kidney disease Acute renal failure type: unspecified Qualified Code(s): N17.9 - Acute kidney failure, unspecified; N18.3 - Chronic kidney disease, stage 3 (moderate) (3) Nausea & vomiting Vomiting Intractability: intractable Vomiting type: unspecified Qualified Code(s): R11.2 - Nausea with vomiting, unspecified
[2018-11-27] MEDS ORDERED: BISACODYL 10 MG SUPP PR PRN (11:17)
--- NOTE | 2018-11-27 12:33 | Hematology/Oncology Prog Note ---
Date of Service November 27, 2018 Assessment & Plan (1) Nausea & vomiting: Ms. Colindres came in unable to eat from nausea. At this point, any component of her nausea attributable to chemotherapy should have faded. She had an EGD yesterday that did not reveal a gastric outlet obstruction. Overall, I think her issues are related to dysmotility arising from peritoneal carcinomatosis. As we discussed previously, this is often a terminal development in patients with peritoneal carcinomatosis. It makes chemotherapy, which would be the only treatment likely to improve the symptoms, very difficult if not impossible. She has been heavily pretreated and I think the likelihood of response to single-agent gemcitabine is low, even setting aside questions of tolerance. As a result, I think her best next option would be hospice care. She and her [id number] were in agreement with this. They had previously established care with a home palliative care agency that also provides hospice services, so the transition should be simple. I gave her the contact information for our office. We could consider another palliative paracentesis as needed, though I would worry a bit that too many paracenteses could accelerate her decline due to dehydration, particularly in light of her limited ability to eat. Her prognosis is grim, with a life expectancy measured most likely in weeks. I would be happy to assist in any other way I can and encouraged her to call at any time. Present on Admission?: Yes Subjective Ms. Colindres is comfortable in a recliner today. She is tolerating sips and chips, though if she takes any more than that, she gets sick. She still has some discomfort in her abdomen, but it is stable. She had a paracentesis earlier and took off close to 4L. Review of Systems Constitutional: + fatigue, + weakness and + anorexia; no fever Respiratory: no cough and no dyspnea Cardiovascular: + edema Gastrointestinal: + nausea and + vomiting; no diarrhea/loose stools Musculoskeletal: No bone pain Physical Exam Constitutional: + ill appearing and comfortable; no acute distress Eyes: + anicteric sclerae and EOM intact bilaterally ENMT: Mouth: + dry oral mucous membranes; no oral mucosal abnormality Respiratory: normal respiratory effort, lungs clear to auscultation Cardiovascular: RRR, no murmur, no edema Gastrointestinal (Abdomen): Inspection/Auscultation: + hypoactive bowel sounds; abdomen not distended Percussion/Palpation: abdomen soft; abdomen nontender Neurologic: awake (somnolent but easily arousable) Lymphatic: no cervical or axillary lymphadenopathy Results & Data Vital Signs (Past 12 Hours) Vital Signs Temp Pulse Resp BP Pulse Ox 11/27/18 07:24 36.5 C 101 H 21 123/84 91 11/27/18 04:00 36.9 C 98 H 20 120/83 92 (1) Nausea & vomiting Vomiting type: unspecified Vomiting Intractability: intractable Qualified Code(s): R11.2 - Nausea with vomiting, unspecified
[2018-11-27] MEDS: CHECK FENTANYL PATCH PLACEMENT SCH ×2 (16:55→23:58)
[2018-11-28] MEDS: ENOXAPARIN 100 MG/1ML SYR SQ SCH ×3 (01:07→14:05)
[2018-11-28] MEDS: MoRPHine SULFATE 10 MG/0.5 ML UDP PO PRN ×3 (02:08→11:10)
[2018-11-28] MEDS: METOCLOPRAMIDE HCL INJ 5 MG/ML 2 ML VIAL IV SCH ×2 (06:41→14:35)
[2018-11-28] MEDS: CHECK FENTANYL PATCH PLACEMENT SCH (07:38)
[2018-11-28] MEDS: POLYETHYLENE (MIRALAX) 17 GM PACK PO SCH (07:39)
[2018-11-28] MEDS: ONDANSETRON INJ 2 MG/ML 2 ML VIAL IV PRN (11:11)
--- NOTE | 2018-11-28 13:27 | Hospitalist Progress Note ---
Date of Service November 28, 2018 Assessment & Plan (1) Intractable abdominal pain: Symptom improved after starting on fentanyl patch, PRN Roxanol Secondary to metastatic ovarian cancer with peritoneal carcinomatosis, recurrent malignant ascites pain control had has Been a difficult issue as patient could not keep any p.o. down secondary to nausea vomiting -pain meds changed to fentanyl patch P.o. pain meds, OxyIR 15 mg twice daily (home med)-discontinued Started on trial of fentanyl patch 12 mcg transdermal every 72 hours/added PRN Roxanol -Patient reports much improvement of pain and nausea Ordered for daily MiraLAX scheduled dose- To prevent narcotic induced constipation-high risk Dulcolax suppository as needed, if no bowel movement in 2 days Patient's overall prognosis remains extremely poor Patient feels comfortable to return home with hospice today (2) Nausea & vomiting: Secondary to severe compression deformity of stomach from external pressure by peritoneal carcinomatosis No bladder outlet obstruction noted Symptom improved mildly after 3 L of paracentesis done yesterday Continue sublingual as needed Zofran Patient ordered scheduled dose of Reglan CT abd/pelvis showed no major change compared to the prior study of 11/01/2018. Moderate abdominal and pelvic ascites. Nonobstructive bowel pattern. Bedside long discussion with patient's family and Dr. Rodgers, Overall poor prognosis of this progressive ovarian cancer emphasized multiple times by the hematology oncology Patient is willing to transition care to hospice/palliative care GI eval requested, appreciate input Sted EGD: Shows Severe deformity found in entire examined stomach. This consisted of compression of the entire stomach-likely related to external pressure by peritoneal carcinomatosis Discussed with GI: Dr. Sunita Knowles-given the significant malignant ascites, venting gastrostomy may not be an option for the patient, high risk for perforation, dislodgment of tube Patient is being discharged home with home hospice (3) Ovarian cancer: Had treatment in [place], multiple round of chemo with minimal effectiveness Returned to [place] on 2016 to be with family members Follows with Oncology in [facility], Patient wants to follow with hematology oncology [facility] oncology group. Appreciate input from Dr. Rodgers Will need clinic follow-up arranged with Dr. Rosales Patient and family members updated by Dr. Rodgers, regarding advanced noncurable and terminal status of metastatic ovarian cancer Does recommend hospice/palliative care Very poor prognosis Palliative care on board -discussed option for goals of care-appreciate input patient is agreeable for hospice care, will be discharged home with home hospice today (4) Bilateral pulmonary embolism: Recent PE in October 21 CTA chest showed findings consistent with bilateral pulmonary emboli improved from the prior exam. Continue therapeutic lovenox BID-very high risk/hypercoagulable status secondary to metastatic ovarian CA Overall prognosis remains very poor (5) Acute renal failure superimposed on stage 3 chronic kidney disease: Secondary to poor p.o. intake, nausea vomiting Given IV fluid Creatinine remains stable (6) Metastatic cancer: Metastatic ovarian cancer, not responsive to prior chemo treatment, with peritoneal carcinomatosis, malignant ascites (7) Malignant ascites: Recurrent malignant ascites secondary to metastatic ovarian CA with peritoneal carcinomatosis Patient needs requiring paracentesis almost every week with drainage of approximately 3-4 L of ascitic fluid Had 3 paracentesis done at [facility] Status post paracentesis with drainage of 3 L of ascitic fluid on 10/28/2018 Ordered for 1 unit of albumin IV to be given postprocedure Care transition to hospice care patient Given the rate of reaccumulation of ascites/requirement for frequent paracentesis: Suggestive of a very active aggressive malignancy involving the peritoneal lining Overall prognosis remains very poor Family and patient aware Patient wants to seek the option of intermittent paracentesis as an outpatient for comfort Patient will follow-up with Dr. Rosales in clinic, outpatient palliative paracentesis as needed will be arranged by oncology Patient is being discharged home with home hospice (8) Chronic anemia: Secondary to chronic anemia due to widespread malignancy Hbg 7.1 improved to 8.1 after 1 unit of of PRBC transfusion DVT px on Lovenox BID therapeutic dose-recent bilateral PE CODE STATUS : DNR/DNI after lengthy discussion with patient and family Disposition: Discharge home with home hospice today Prescription for PRN Roxanol, fentanyl patch sent to patient's pharmacy at [facility] Roxanol prescription was filled: Fentanyl patch will need preauthorization Patient is asked to be in touch with hospice, to expedite preauthorization process The fentanyl patch is placed on patient which can be continued to Friday Subjective No complaint of nausea today, has been tolerating liquid diet, pain much controlled with fentanyl patch Son and [id number] present at bedside, Patient decided to transition to hospice care on return home Patient feels comfortable to return home with current pain med regimen Already referral made to [facility] home health nursing which can be transitioned to hospice caresocial service updated Physical Exam Constitutional: + ill appearing and + obese Eyes: PERRL, conjunctivae normal, anicteric sclerae ENMT: external ear and nose normal, oropharynx normal Neck: trachea midline, no thyromegaly Respiratory: normal respiratory effort, lungs clear to auscultation Cardiovascular: RRR, no murmur, no edema Gastrointestinal (Abdomen): Inspection/Auscultation: + abdomen distended Percussion/Palpation: + abdomen tender and abdomen soft Musculoskeletal: no cyanosis or clubbing, extremities motor strength 5/5 Skin: no rashes, warm and dry Neurologic: PERRL, EOMI, accommodation nl, no face palsy, no dysarthria Psychiatric: A+Ox3, euthymic affect Orientation: alert and oriented x 3 Affect: + flat affect (1) Ovarian cancer Laterality: unspecified laterality Qualified Code(s): C56.9 - Malignant neoplasm of unspecified ovary (2) Acute renal failure superimposed on stage 3 chronic kidney disease Acute renal failure type: unspecified Qualified Code(s): N17.9 - Acute kidney failure, unspecified; N18.3 - Chronic kidney disease, stage 3 (moderate) (3) Nausea & vomiting Vomiting Intractability: intractable Vomiting type: unspecified Qualified Code(s): R11.2 - Nausea with vomiting, unspecified
[2018-11-28] MEDS ORDERED: HYDROmorphone INJ 1 MG/ML SYRINGE IV SCH (13:45)
[2018-11-28] MEDS ORDERED: HYDROmorphone INJ 1 MG/ML SYRINGE ONE (14:01)
--- NOTE | 2018-11-28 14:02 | Discharge Summary ---
Date of Service November 28, 2018 Admission HPI Per Admitting Provider DICTATED BY: Jacinto Garcia MD DATE OF ADMISSION: 11/22/2018 CHIEF COMPLAINT: Persistent nausea and vomiting. HISTORY OF PRESENT ILLNESS: This 63-year-old female with past medical history significant for ovarian cancer is currently on chemo, history of hypertension, chronic pain, history of recent diagnosis of bilateral pulmonary embolism. At that time, she was hypotensive and she was transferred to [facility] for possible IR, but as per patient no intervention was done and she was placed on Lovenox shots. She had last chemo last at [facility] and she is currently moving her care to [place]. She has established last week with [facility] PCP in [place] and she is supposed to follow for next chemo with [facility] oncology next , but presents to the ER today because of persistent nausea and vomiting since last since her chemo. She is not able to eat anything, not able to keep anything down. She felt she was dehydrated and got worried and came to the hospital. She has some cough with whitish phlegm. Says she is vomiting whatever she eats. She is eating lot of popsicles as per the family. She lives with her son and [id number]. She ambulates with the help of a walker. Not eating, poor appetite since several weeks. About 4 liters of ascitic fluid was taken out last and about 3 liters taken out a couple of weeks prior to that. She says her shortness of breath is same as usual. She has some abdominal discomfort, but it is improving now. Still feels nauseous. Denies any chest pain. No headache, no blurred visions, no earache, no runny nose, has some sore throat from persistent vomiting. No fevers. Sleeps okay. Had some diarrhea last Friday, but since then she did not move her bowels. No blood in the stools, no black stools. Normal bladder movements. No swelling of the legs. No rash. Currently resting comfortably and hemodynamically stable. Principal Diagnosis Metastatic ovarian cancer, intractable nausea vomiting, home with hospice Discharge Exam Constitutional + ill appearing and + obese Eyes PERRL, conjunctivae normal, anicteric sclerae ENMT external ear and nose normal, oropharynx normal Neck trachea midline, no thyromegaly Respiratory normal respiratory effort, lungs clear to auscultation Cardiovascular RRR, no murmur, no edema Gastrointestinal (Abdomen) Inspection/Auscultation: + abdomen distended Percussion/Palpation: + abdomen tender and abdomen soft Musculoskeletal no cyanosis or clubbing, extremities motor strength 5/5 Skin no rashes, warm and dry Neurologic PERRL, EOMI, accommodation nl, no face palsy, no dysarthria Psychiatric A+Ox3, euthymic affect Orientation: alert and oriented x 3 Affect: + flat affect Discharge Data Allergies Allergy/AdvReac Type Severity Reaction Status Date / Time No Known Allergies Allergy Unverified 11/22/18 19:10 Consultations 11/22/18 20:39 ED Decision to Admit Stat 11/22/18 23:13 Consult Case Management - Discharge Planning Routine 11/23/18 08:00 Consult Oncology Routine 11/23/18 13:02 Consult Palliative Care Routine 11/24/18 11:22 Consult Patient Services Routine 11/25/18 16:12 Consult Gastroenterology Routine 11/26/18 17:09 Consult Radiology Routine Procedures Performed Operation Date: 11/26/18 09:30 Actual Procedures p Esophagogastroduodenoscopy(Not Applicable) - Sunita Knowles Ordered Studies 11/22/18 18:39 CT abd pelvis IV con only Stat CT angio chest PE protocol Stat 11/27/18 17:08 US paracentesis abd w/image Routine Hospital Course (1) Intractable abdominal pain: Symptom improved after starting on fentanyl patch, PRN Roxanol Secondary to metastatic ovarian cancer with peritoneal carcinomatosis, recurrent malignant ascites pain control had has Been a difficult issue as patient could not keep any p.o. down secondary to nausea vomiting -pain meds changed to fentanyl patch P.o. pain meds, OxyIR 15 mg twice daily (home med)-discontinued Started on trial of fentanyl patch 12 mcg transdermal every 72 hours/added PRN Roxanol -Patient reports much improvement of pain and nausea Ordered for daily MiraLAX scheduled dose- To prevent narcotic induced constipation-high risk Dulcolax suppository as needed, if no bowel movement in 2 days Patient's overall prognosis remains extremely poor Patient feels comfortable to return home with hospice today (2) Nausea & vomiting: Secondary to severe compression deformity of stomach from external pressure by peritoneal carcinomatosis No bladder outlet obstruction noted Symptom improved mildly after 3 L of paracentesis done yesterday Continue sublingual as needed Zofran Patient ordered scheduled dose of Reglan CT abd/pelvis showed no major change compared to the prior study of 11/01/2018. Moderate abdominal and pelvic ascites. Nonobstructive bowel pattern. Bedside long discussion with patient's family and Dr. Rodgers, Overall poor prognosis of this progressive ovarian cancer emphasized multiple times by the hematology oncology Patient is willing to transition care to hospice/palliative care GI eval requested, appreciate input Sted EGD: Shows Severe deformity found in entire examined stomach. This consisted of compression of the entire stomach-likely related to external pressure by peritoneal carcinomatosis Discussed with GI: Dr. Sunita Knowles-given the significant malignant ascites, venting gastrostomy may not be an option for the patient, high risk for perforation, dislodgment of tube Patient is being discharged home with home hospice (3) Ovarian cancer: Had treatment in [place], multiple round of chemo with minimal effectiveness Returned to [place] on 2015 to be with family members Follows with Oncology in [facility], Patient wants to follow with hematology oncology [facility] oncology group. Appreciate input from Dr. Rodgers Will need clinic follow-up arranged with Dr. Rosales Patient and family members updated by Dr. Rodgers, regarding advanced noncurable and terminal status of metastatic ovarian cancer Does recommend hospice/palliative care Very poor prognosis Palliative care on board -discussed option for goals of care-appreciate input patient is agreeable for hospice care, will be discharged home with home hospice today (4) Bilateral pulmonary embolism: Recent PE in October 21 CTA chest showed findings consistent with bilateral pulmonary emboli improved from the prior exam. Continue therapeutic lovenox BID-very high risk/hypercoagulable status secondary to metastatic ovarian CA Overall prognosis remains very poor (5) Acute renal failure superimposed on stage 3 chronic kidney disease: Secondary to poor p.o. intake, nausea vomiting Given IV fluid Creatinine remains stable (6) Metastatic cancer: Metastatic ovarian cancer, not responsive to prior chemo treatment, with peritoneal carcinomatosis, malignant ascites (7) Malignant ascites: Recurrent malignant ascites secondary to metastatic ovarian CA with peritoneal carcinomatosis Patient needs requiring paracentesis almost every week with drainage of approximately 3-4 L of ascitic fluid Had 3 paracentesis done at [facility] Status post paracentesis with drainage of 3 L of ascitic fluid on 10/28/2018 Ordered for 1 unit of albumin IV to be given postprocedure Care transition to hospice care patient Given the rate of reaccumulation of ascites/requirement for frequent paracentesis: Suggestive of a very active aggressive malignancy involving the peritoneal lining Overall prognosis remains very poor Family and patient aware Patient wants to seek the option of intermittent paracentesis as an outpatient for comfort Patient will follow-up with Dr. Rosales in clinic, outpatient palliative paracentesis as needed will be arranged by oncology Patient is being discharged home with home hospice (8) Chronic anemia: Secondary to chronic anemia due to widespread malignancy Hbg 7.1 improved to 8.1 after 1 unit of of PRBC transfusion DVT px on Lovenox BID therapeutic dose-recent bilateral PE CODE STATUS : DNR/DNI after lengthy discussion with patient and family Disposition: Discharge home with home hospice today Prescription for PRN Roxanol, fentanyl patch sent to patient's pharmacy at [facility] Roxanol prescription was filled: Fentanyl patch will need preauthorization Patient is asked to be in touch with hospice, to expedite preauthorization process The fentanyl patch is placed on patient which can be continued to Friday Total Time Total Time Spent Total Time Spent (In Minutes): approx 40 mins Total Time Includes: Examination of the Patient, Discharge Planning, Medication Reconciliation and Communication With Other Providers Discharge Plan Discharge Items Patient Disposition: Home - Home Health Services Reason For Visit: VOMITING Discharge Diagnosis: Metastatic ovarian cancer, intractable nausea vomiting, home with hospice Discharge Goals: Decrease discomfort and Improve disease control Activity: As commented below Activity Comment: As tolerated Non-emergency contact: Primary Care Provider and Oncologist Call non-emergency contact if: you have any medication questions, your symptoms worsen, your pain is not controlled and your pain is worsening Follow-up/Referrals: Brenden Salcedo DO [Physician] - Sarah Cantu DO [Primary Care Provider] - Diet: Full liquid Addtl Provider Instructions: Hematology oncology follow-up with Dr. Salcedo please call office to schedule an appointment Home with hospice/palliative care Fentanyl Patch scrip needs to have Pre Authorization please update Hospice agency Prescriptions: New polyethylene glycol 3350 [Miralax] 17 gram Powder In Packet 17 g PO DAILY 30 Days Qty: 30 RF: 0 lorazepam 0.5 mg Tablet 0.5 mg sublingual Q8 PRN (Reason: anxiety) Qty: 60 RF: 0 bisacodyl [Laxative (bisacodyl)] 10 mg Suppository 10 mg SC DAILY PRN (Reason: constipation) 30 Days Qty: 30 RF: 0 fentanyl 12 mcg/hr Patch 72 Hour 12 mcg transdermal Q3D Qty: 3 RF: 0 metoclopramide HCl [Reglan] 5 mg tablet 5 mg PO TID Qty: 90 RF: 4 morphine concentrate 100 mg/5 mL (20 mg/mL) Solution 0.5 ml PO Q2H PRN (Reason: pain) Qty: 30 RF: 0 Continued polyethylene glycol 3350 [Miralax] 17 gram Powder In Packet 17 g PO QAM RF: 0 prochlorperazine maleate 10 mg Tablet 10 mg PO Q4H PRN (Reason: Nausea) RF: 0 ranitidine HCl 150 mg Tablet 150 mg PO PM RF: 0 sennosides-docusate sodium [Senna-S] 8.6-50 mg Tablet 2 tab PO HS PRN (Reason: Constipation) RF: 0 enoxaparin [Lovenox] 120 mg/0.8 mL Syringe 120 mg SUBCUT Q12H RF: 0 ondansetron 8 mg Tablet,Disintegrating 8 mg PO Q4H PRN (Reason: Nausea) Qty: 120 RF: 3 Discontinued simvastatin 40 mg Tablet 20 mg PO PM RF: 0 ondansetron 8 mg Tablet,Disintegrating 8 mg PO Q4H PRN (Reason: Nausea) RF: 0 lorazepam 0.5 mg Tablet 0.5 mg PO UD PRN (Reason: Anxiety) RF: 0 amlodipine 10 mg Tablet 10 mg PO QAM RF: 0 gabapentin 300 mg Capsule 300 mg PO QPM RF: 0 folic acid 1 mg Tablet 1 mg PO QAM RF: 0 morphine 15 mg Tablet 15 mg PO BID RF: 0 oxycodone 5 mg Tablet 5 mg PO Q4H PRN (Reason: Pain) RF: 0 cyclobenzaprine 5 mg Tablet 5 mg PO UD PRN (Reason: Muscle Spasm) RF: 0 bupropion HCl 150 mg Tablet Extended Release 24 Hr 150 mg PO QAM RF: 0 Stand-Alone Forms: [facility] Discharge Orders: Discharge Order (Routine); Ordered 11/28/18 Ordered By: Jaylene Serrano Admission Data Admit Date/Time: 11/22/18 22:21 Attending Provider: Jaylene Serrano Admit Provider: Jacinto Garcia Primary Care Provider: Sarah Cantu Other Providers: Prosper Wall ; Jacinto Garcia ; Brenden Salcedo V ; Lizet Ponce ; Sukhdev Duffy ; Donal Churchill ; Jocy Wyatt ; Long Newman ; Sunita Knowles ; Kiel Arboleda ; Vanessa Orantes ; Casimiro Yadav ; Dariel Lees ; Lydia Multani ; Sunshine Escamilla ; Regina Moffett ; Erica Osborne ; Delmy Deras ; Radha Stephenson ; Stephany Armendariz ; Royer Goss ; Kevin Kemp ; Clive Alarcon ; Vincent Clifford ; Maikel Núñez ; Gopal Crane ; Kevin Hopper ; Lindsay Davis ; Stephen Taylor ; Charly Lucio ; Vishal Urban ; Maikel Hood ; Geovani Bentley ; Guru Aguilar ; Sergio Marin ; Josh Lance ; Jovan Clements ; Chivo Grimaldo P Service: Medical Other Interventions: Discharge Summary Assessment (RN) Last Done: 11/26/18 15:19
[2018-11-28] MEDS: HEPARIN 100 UNIT/ML 5ML FLUSH FLUSH PRN (14:05)
[2018-11-28] MEDS ORDERED: fentaNYL 12 MCG/HR TDSY TD ONE (14:30)
[2018-11-28] MEDS ORDERED: CHECK FENTANYL PATCH PLACEMENT SCH (16:00)
== END 2018-11-28 15:30 | disposition home health service (06) | DRG 392 ==
LOC: ED 18:28 → 2N 22:21 → SUATTDRO 22:21 → 2N 22:36 → 2W 11-27 04:35